=== PATIENT | female | born 1975 | race Caucasian/White ===

== ENCOUNTER → 2017-08-15 | Outpatient (CLI) | payer OTHER ==
--- NOTE | 2017-08-16 13:13 | MM ---
Reason for exam: screening (asymptomatic). Last mammogram was performed 1 year and 5 months ago. History: Patient is postmenopausal. Family history of breast cancer in paternal aunt at age 42. Physical Findings: A clinical breast exam by your physician is recommended on an annual basis and results should be correlated with mammographic findings. MG 3D Screening Mammo W/Cad Bilateral CC and MLO view(s) were taken. Prior study comparison: March 17, 2016, bilateral MG screening mammo w CAD. August 15, 2013, CAD bilateral diagnostic mammogram. The breast tissue is heterogeneously dense. This may lower the sensitivity of mammography. No suspicious abnormality. No significant changes when compared with prior studies. ASSESSMENT: Negative, BI-RAD 1 RECOMMENDATION: Routine screening mammogram of both breasts in 1 year.
== END ==
LOC: RADMAMWWP 16:42
PROVIDERS: ATTEND Obstetrics & Gynecology
DX: Z12.31 Encounter for screening mammogram for malignant neoplasm of breast (principal)
CPT/HCPCS: 77063; G0202

== ENCOUNTER 2019-03-27 06:59 | Emergency (ER) | payer BC, OTHER ==
[2019-03-27 07:08] VITALS: BP 121/60; PULSE 89; RESP 18; TEMP 97.7
--- NOTE | 2019-03-27 07:35 | ED ---
General Adult HPI - General Chief complaint: Dental/Oral Stated complaint: dental pain Time Seen by Provider: 03/27/19 07:12 Source: patient Mode of arrival: ambulatory Limitations: no limitations - History of Present Illness Initial comments: Dictation was produced using [employer] dictation software. please excuse any grammatical, word or spelling errors. Chief Complaint: 44-year-old female past medical history of Paz palsy and migraines presents with sublingual pain. History of Present Illness: Patient is a 44-year-old female with 5-6 days of worsening sublingual pain. Patient reports that these symptoms began spontaneously. She feels as though her mouth is dry. She did notice pain when palpating inside of her mouth under the tongue. Patient tried eating sour candy with improvement of symptoms however after 15 minutes pain begins increasing. Denies any constitutional symptoms. Patient does feel some slight swelling under the jaw The ROS documented in this emergency department record has been reviewed and confirmed by me. Those systems with pertinent positive or negative responses have been documented in the HPI. All other systems are other negative and/or noncontributory. PHYSICAL EXAM: General Impression: Alert and oriented x3, not in acute distress HEENT: Normocephalic atraumatic, extra-ocular movements intact, pupils equal and reactive to light bilaterally, mucous membranes moist, slight induration and erythema to the right sublingual space, no identifiable stone, mild positive lymphadenopathy anterior cervical chain Cardiovascular: Heart regular rate and rhythm, S1&S2 audible, no murmurs, rubs or gallops Chest: Lungs clear to auscultation bilaterally, no rhonchi, no wheeze, no rales Abdomen: Bowel sounds present, abdomen soft, non-tender, non-distended, no organomegaly Musculoskeletal: Pulses present and equal in all extremities, no peripheral edema Motor: no focal deficits noted Neurological: CN II-XII grossly intact, no focal motor or sensory deficits noted Skin: Intact with no visualized rashes Psych: Normal affect and mood ED course: 44-year-old female with clinical presentation consistent with sialoadenitis versus sialolithiasis. The patient has had symptoms for 5-6 days and persistent despite sour candies patient be given a prescription for antibiot ics. As upon arrival are within acceptable limits. Patient doesn't have any medication ALLERGIES. Patient given prescription for Augmentin. Given referral to disciplinary hearing officer for outpatient management of symptoms. - Related Data Home Medications Medication Instructions Recorded Confirmed Bacillus Coagulans [Digestive 1 tab PO DAILY 03/27/19 03/27/19 Advantage] Collagen 1 tab PO DAILY 03/27/19 03/27/19 Dextroamphetamine/Amphetamine 20 mg PO QAM 03/27/19 03/27/19 [Adderall Xr] Multivitamins, Thera [Multivitamin 1 tab PO DAILY 03/27/19 03/27/19 (formulary)] Naproxen Sodium [Aleve] 220 mg PO BID PRN 03/27/19 03/27/19 Previous Rx's Medication Instructions Recorded Amoxic-Pot Clav 875-125Mg 1 tab PO BID 7 Days #14 tab 03/27/19 [Augmentin 875-125] Allergies Allergy/AdvReac Type Severity Reaction Status Date / Time Latex, Natural Rubber Allergy Unknown Verified 03/27/19 07:27 Review of Systems ROS Statement: Those systems with pertinent positive or pertinent negative responses have been documented in the HPI. ROS Other: All systems not noted in ROS Statement are negative. Past Medical History Additional Past Medical History / Comment(s): migraine, bells palsy, back pain, History of Any Multi-Drug Resistant Organisms: C-DIFF Date of last positivie culture/infection: 2006 Past Surgical History: Section, Hysterectomy Past Psychological History: No Psychological Hx Reported Smoking Status: Current some day smoker Past Alcohol Use History: Occasional Past Drug Use History: None Reported General Exam Limitations: no limitations Course Vital Signs 03/27/19 07:04 Temperature 97.7 F Pulse Rate 89 Respiratory 18 Rate Blood Pressure 121/60 O2 Sat by Pulse 98 Oximetry Disposition Clinical Impression: Oral pain Disposition: HOME SELF-CARE Condition: Good Instructions (If sedation given, give patient instructions): Sialoadenitis (ED) Prescriptions: Amoxic-Pot Clav 875-125Mg [Augmentin 875-125] 1 tab PO BID 7 Days #14 tab Is patient prescribed a controlled substance at d/c from ED?: No Referrals: Kaylie Maria DO [Primary Care Provider] - 1-2 days Time of Disposition: 07:35
== END 2019-03-27 07:51 | disposition home or self-care (01) ==
LOC: EC 06:59
DX: K13.79 Other lesions of oral mucosa (principal); F17.200 Nicotine dependence, unspecified, uncomplicated; Z79.899 Other long term (current) drug therapy; Z91.040 Latex allergy status
CPT/HCPCS: 99282

== ENCOUNTER 2019-07-13 14:29 | Emergency (ER) | payer BC ==
[2019-07-13 14:36] VITALS: TEMP 97.9
--- NOTE | 2019-07-13 15:04 | ED ---
General Adult HPI - General Chief complaint: Neuro Symptoms/Deficit Stated complaint: Facial Numbness Time Seen by Provider: 07/13/19 14:37 Source: patient, RN notes reviewed Mode of arrival: ambulatory Limitations: no limitations - History of Present Illness Initial comments: Patient is a pleasant 44-year-old female presenting to the emergency department with concerns for neurological problems. Patient states last few days she's been having some headaches mostly on the left side. Patient states it feels almost like a burning sensation. Discomfort has been mild to moderate. Patient states symptoms are not sudden onset. Symptoms have been intermittent. Patient feels the left side of her face is somewhat more full and feels funny. 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 Patient did have an episode when she got out of her car as she was walking into the [employer] salon where she did not know why she was heading there. Patient states this lasted approximately 10 seconds. Patient is anxious and tearful when providing her history. Patient denies any extremity weakness or loss of sensation. Patient states she does not feel confused at this time at all. - Related Data Home Medications Medication Instructions Recorded Confirmed Bacillus Coagulans [Digestive 1 tab PO DAILY 03/27/19 07/13/19 Advantage] Collagen 1 tab PO DAILY 03/27/19 07/13/19 Dextroamphetamine/Amphetamine 20 mg PO DAILY 03/27/19 07/13/19 [Adderall Xr] Fluticasone Nasal [place] [Flonase 1 - 2 spray EA NOSTRIL BID PRN 07/13/19 07/13/19 Nasal [place]] Nitro Coffe Supplement Powder 1 dose PO DAILY 07/13/19 07/13/19 Xanthromax 1 cap PO DAILY 07/13/19 07/13/19 Allergies Allergy/AdvReac Type Severity Reaction Status Date / Time Latex, Natural Rubber Allergy Rash/Hives Verified 07/13/19 16:03 ofloxacin [From Floxin] AdvReac Unknown Verified 07/13/19 16:03 Review of Systems ROS Statement: Those systems with pertinent positive or pertinent negative responses have been documented in the HPI. ROS Other: All systems not noted in ROS Statement are negative. Constitutional: Denies: fever Eyes: Denies: eye pain ENT: Denies: ear pain Respiratory: Denies: cough Cardiovascular: Denies: chest pain Endocrine: Denies: fatigue Gastrointestinal: Denies: abdominal pain Genitourinary: Denies: dysuria Musculoskeletal: Denies: back pain Skin: Denies: rash Neurological: Reports: as per HPI Past Medical History Past Medical History: Rheumatoid Arthritis (RA) Additional Past Medical History / Comment(s): migraine, bells palsy, back pain, History of Any Multi-Drug Resistant Organisms: C-DIFF Date of last positivie culture/infection: 2006 Past Surgical History: Section, Hysterectomy Past Psychological History: No Psychological Hx Reported Smoking Status: Current some day smoker Past Alcohol Use History: Occasional Past Drug Use History: None Reported General Exam Limitations: no limitations General appearance: alert, in no apparent distress Head exam: Present: atraumatic Eye exam: Present: normal appearance, PERRL, EOMI. Absent: nystagmus ENT exam: Present: normal oropharynx Neck exam: Present: normal inspection Respiratory exam: Present: normal lung sounds bilaterally Cardiovascular Exam: Present: regular rate, normal rhythm GI/Abdominal exam: Present: soft. Absent: tenderness Extremities exam: Present: normal inspection Neurological exam: Present: alert, oriented X3, CN II-XII intact (Except for minimal weakness on the left side with smile). Absent: motor sensory deficit Expanded Neurological exam: Present: protecting the airway Patient oriented to: Present: person, place, time Speech: Present: fluid speech Cranial nerves: EOM's Intact: Normal, Facial Sensation: Normal Cerebellar function: Finger to Nose: Normal Sensory exam: Upper Extremity Light Touch: Normal, Lower Extremity Light Touch: Normal Motor strength exam: RUE: 5, LUE: 5, RLE: 5, LLE: 5 Eye Response: (4) open spontaneously Motor Response: (6) obeys commands Verbal Response: (5) oriented Psychiatric exam: Present: normal affect, normal mood Skin exam: Present: normal color Course Vital Signs 07/13/19 07/13/19 07/13/19 14:32 15:00 15:30 Temperature 97.9 F Pulse Rate 84 71 Respiratory 18 12 Rate Blood Pressure 136/77 134/86 127/74 O2 Sat by Pulse 100 100 Oximetry 07/13/19 07/13/19 07/13/19 16:00 16:30 17:00 Temperature Pulse Rate 83 75 73 Respiratory 8 L 7 L 16 Rate Blood Pressure 124/74 113/78 108/73 O2 Sat by Pulse 92 L 100 99 Oximetry 07/13/19 17:30 Temperature Pulse Rate 71 Respiratory 14 Rate Blood Pressure 108/74 O2 Sat by Pulse 100 Oximetry EKG Findings - EKG Comments: EKG Findings:: Normal sinus rhythm 70. OR 118. QRS 74. QT 378. QTC 408. Normal axis. Normal QRS. No acute ST change. Medical Decision Making - Medical Decision Making Patient reevaluated and resting comfortably in bed, symptom-free. Patient has no symptoms to finding of stroke. Patient is symptom-free at this time. Patient does question if her symptoms are related to anxiety. Patient states she did have severe headache a week ago and CT angiogram was done which also showed no acute process. Patient and family are comfortable with discharge home. They are encouraged and agreeable to close follow-up in the being the week and aspirin daily. - Lab Data Result diagrams: 07/13/19 14:58 07/13/19 14:58 Lab Results 07/13/19 07/13/19 07/13/19 Range/Units 14:58 14:58 14:58 WBC 4.9 (3.8-10.6) k/uL RBC 4.49 (3.80-5.40) m/uL Hgb 14.2 (11.4-16.0) gm/dL Hct 42.3 (34.0-46.0) % MCV 94.3 (80.0-100.0) fL MCH 31.6 (25.0-35.0) pg MCHC 33.5 (31.0-37.0) g/dL RDW 15.0 (11.5-15.5) % Plt Count 271 (150-450) k/uL Neutrophils % 53 % Lymphocytes % 30 % Monocytes % 8 % Eosinophils % 5 % Basophils % 1 % Neutrophils # 2.6 (1.3-7.7) k/uL Lymphocytes # 1.5 (1.0-4.8) k/uL Monocytes # 0.4 (0-1.0) k/uL Eosinophils # 0.3 (0-0.7) k/uL Basophils # 0.1 (0-0.2) k/uL PT 10.6 (9.0-12.0) sec INR 1.0 (<1.2) APTT 26.7 (22.0-30.0) sec Sodium 141 (137-145) mmol/L Potassium 4.8 (3.5-5.1) mmol/L Chloride 104 (98-107) mmol/L Carbon Dioxide 29 (22-30) mmol/L Anion Gap 8 mmol/L BUN 11 (7-17) mg/dL Creatinine 0.90 (0.52-1.04) mg/dL Est GFR (CKD-EPI)AfAm 90 (>60 ml/min/1.73 sqM) Est GFR (CKD-EPI)NonAf 78 (>60 ml/min/1.73 sqM) Glucose 88 (74-99) mg/dL Calcium 9.6 (8.4-10.2) mg/dL Total Bilirubin 0.3 (0.2-1.3) mg/dL AST 25 (14-36) U/L ALT 17 (9-52) U/L Alkaline Phosphatase 49 (38-126) U/L Total Protein 7.3 (6.3-8.2) g/dL Albumin 4.3 (3.5-5.0) g/dL - Radiology Data Radiology results: report reviewed (Computed tomography scan of the brain reveals no acute process. CT angios shows no acute process.), image reviewed (Chest x-ray shows no acute process) Disposition Clinical Impression: Confusion Disposition: HOME SELF-CARE Condition: Stable Instructions (If sedation given, give patient instructions): Altered Mental Status (ED) Additional Instructions: Please follow-up with your primary care physician Monday. Aspirin daily until further directed by your primary care physician. He will need further evaluation. Return for confusion, weakness, loss of sensation, worsening or changing symptoms or any other concerns. Is patient prescribed a controlled substance at d/c from ED?: No Referrals: Kaylie Maria DO [Primary Care Provider] - 1-2 days Time of Disposition: 19:13
[2019-07-13 15:11] LABS: Basophils # (A) 0.1 k/uL (0-0.2); Basophils % (A) 1 %; Eosinophils # (A) 0.3 k/uL (0-0.7); Eosinophils % (A) 5 %; HCT 42.3 % (34.0-46.0); HGB 14.2 gm/dL (11.4-16.0); Lymphocytes # (A) 1.5 k/uL (1.0-4.8); Lymphocytes % (A) 30 %; MCH 31.6 pg (25.0-35.0); MCHC 33.5 g/dL (31.0-37.0); MCV 94.3 fL (80.0-100.0); Monocytes # (A) 0.4 k/uL (0-1.0); Monocytes % (A) 8 %; Neutrophils # (A) 2.6 k/uL (1.3-7.7); Neutrophils % (A) 53 %; Platelet Count 271 k/uL (150-450); RBC 4.49 m/uL (3.80-5.40); WBC 4.9 k/uL (3.8-10.6)
[2019-07-13 15:19] LABS: Partial Thromboplastin Time 26.7 sec (22.0-30.0); Prothrombin Time 10.6 sec (9.0-12.0)
[2019-07-13 15:21] LABS: Albumin 4.3 g/dL (3.5-5.0); Calcium 9.6 mg/dL (8.4-10.2); Potassium 4.8 mmol/L (3.5-5.1); Total Bilirubin 0.3 mg/dL (0.2-1.3); Total Protein 7.3 g/dL (6.3-8.2)
--- NOTE | 2019-07-13 15:56 | CT ---
EXAMINATION TYPE: CT brain wo con DATE OF EXAM: 07/13/2019 COMPARISON: None HISTORY: 44-year-old female Left sided weakness and confusion on and off x 1 week. TECHNIQUE: Examination was done in axial plane without intravenous contrast. Coronal and sagittal r econstructions performed. CT DLP: 1099.4 mGycm Automated exposure control for dose reduction was used. FINDINGS: There is no evidence of acute intracranial hemorrhage, acute ischemic changes, mass, mass-effect, or extra-axial fluid collection. There is no effacement of cerebral sulci or basal subarachnoid cister ns. There is no hydrocephalus. There is no midline shift. Montiel-white matter distinction is preserv ed. Paranasal sinuses and mastoid air cells are well pneumatized. Orbits and globes are intact. IMPRESSION: No acute intracranial abnormality seen. If symptoms persist, follow-up CT or MRI.
--- NOTE | 2019-07-13 16:22 | XR ---
EXAMINATION TYPE: XR chest 2V DATE OF EXAM: 07/13/2019 COMPARISON: None HISTORY: 44-year-old female confusion, altered mental status TECHNIQUE: PA and lateral views FINDINGS: The cardiomediastinal silhouette, aorta, and pulmonary vasculature are within normal limits. Lungs an d pleural spaces are clear. IMPRESSION: No acute cardiopulmonary process.
[2019-07-13 17:46] VITALS: PULSE 71; RESP 14
--- NOTE | 2019-07-13 19:06 | CT ---
EXAMINATION TYPE: CT angio head neck DATE OF EXAM: 07/13/2019 COMPARISON: Correlation CT brain same day HISTORY: 44-year-old female Dizziness TECHNIQUE: Contiguous axial scanning of the head and neck performed with IV Contrast, patient injecte d with 50 mL of Isovue 370. Coronal/sagittal MIP reconstructions performed. 3-D reconstructions gener ated on a dedicated independent workstation. CT DLP: 366.1 mGycm Automated exposure control for dose reduction was used. FINDINGS: Neck: Conventional arch vessel branching anatomy. The bilateral vertebral arteries are patent throughout their course and codominant. The right common and internal carotid arteries are widely patent. The left common and internal carotid arteries are widely patent. Head: The vertebral, basilar, and internal carotid arteries are patent without arterial occlusion, signific ant stenosis, or aneurysmal change. IMPRESSION: 1. NECK: WIDELY PATENT CAROTID AND VERTEBRAL ARTERIES OF THE NECK. 2. HEAD: UNREMARKABLE CTA [place].
[2019-07-13] MEDS ORDERED: ASPIRIN 81 MG PO STA (19:12)
[2019-07-13 19:33] VITALS: BP 127/83
== END 2019-07-13 19:34 | disposition home or self-care (01) ==
LOC: EC 14:29
DX: R41.0 Disorientation, unspecified (principal); R51 Headache; R53.1 Weakness; G51.0 Bell's palsy; M06.9 Rheumatoid arthritis, unspecified; F17.200 Nicotine dependence, unspecified, uncomplicated; Z79.899 Other long term (current) drug therapy; Z88.1 Allergy status to other antibiotic agents; Z91.040 Latex allergy status
CPT/HCPCS: 36415; 93005; 80053; 85025; 85610; 85730; 71046; 70496; 70450; 70498; 99284; Q9967

== ENCOUNTER 2022-05-01 18:58 | Inpatient (IN) | payer BC, MEDICAID, OTHER ==
[2022-05-01] MEDS ORDERED: KETOROLAC 15 MG/ML 1 ML VIAL IVP STA (21:13)
[2022-05-01] MEDS ORDERED: methocarbamoL 750 MG TAB PO STA (21:13)
[2022-05-01] MEDS ORDERED: KETOROLAC 15 MG/ML 1 ML VIAL IM STA (21:24)
--- NOTE | 2022-05-01 21:38 | XR ---
EXAMINATION TYPE: XR lumbosacral spine min 4V DATE OF EXAM: 05/01/2022 COMPARISON: NONE HISTORY: Pain TECHNIQUE: 5 views FINDINGS: The lumbar vertebrae have normal alignment. Posterior elements are intact. No compression f racture. Sacroiliac joints are normal. This spaces appear normal IMPRESSION: Normal lumbar spine exam.
[2022-05-01] MEDS ORDERED: predniSONE 20 MG TAB PO STA (22:39)
[2022-05-01] MEDS ORDERED: MORPHINE SULFATE 4 MG/ML SYRINGE IM STA (22:40)
--- NOTE | 2022-05-02 00:38 | ED ---
General Adult HPI - General Chief complaint: Psychiatric Symptoms Stated complaint: back injury Time Seen by Provider: 05/01/22 19:59 Source: patient Mode of arrival: ambulatory Limitations: no limitations - History of Present Illness Initial comments: 47-year-old female past history of back pain, migraines who presents to the emergency department with back pain and suicidal ideations. Does have a history of sciatica. Reports that she was doing some leg lifts earlier last week when she felt a pop in her back. She has had pain to the left SI region with pain that radiates into the left leg. Denies any saddle anesthesia. No bowel or bladder incontinence. No bowel or bladder retention. Denies any fevers. She has been able to ambulate with no reported weakness in her extremities. The pain has caused her to feel stressed to the point where she is suicidal. Recently went off of [place] wort which she stated Her mood stable. Last year she lost her job and got . She had to move back home and live with her elderly parents. States that the stress of everything has really taken a toll in the back pain was the last straw. Reports that she does have a plan to overdose. No other alleviating, precipitating modifying factors - Related Data Home Medications Medication Instructions Recorded Confirmed Fluticasone Nasal [place] [Flonase 1 - 2 spray EA NOSTRIL BID PRN 07/13/19 07/13/19 Nasal [place]] Previous Rx's Medication Instructions Recorded Acetaminophen Tab [Tylenol] 650 mg PO Q4HR PRN tab 05/04/22 DULoxetine HCL [Cymbalta] 20 mg PO DAILY 30 Days cap 05/04/22 Lidocaine 5% Patch [Lidoderm 5% 1 patch TOPICAL DAILY 14 Days 05/04/22 Patch] patch methocarbamoL [Robaxin-750] 750 mg PO BID 14 Days tab 05/04/22 predniSONE [Deltasone] 20 mg PO BID 5 Days tab 05/04/22 Allergies Allergy/AdvReac Type Severity Reaction Status Date / Time Latex, Natural Rubber Allergy Rash/Hives Verified 05/01/22 19:22 ofloxacin [From Floxin] AdvReac Unknown Verified 05/01/22 19:22 Review of Systems ROS Statement: Those systems with pertinent positive or pertinent negative responses have been documented in the HPI. ROS Other: All systems not noted in ROS Statement are negative. Past Medical History Past Medical History: Rheumatoid Arthritis (RA) Additional Past Medical History / Comment(s): migraine, bells palsy, back pain, History of Any Multi-Drug Resistant Organisms: C-DIFF Date of last positivie culture/infection: 2006 Past Surgical History: Section, Hysterectomy Past Psychological History: Depression Smoking Status: Current some day smoker Past Alcohol Use History: Occasional Past Drug Use History: Marijuana General Exam Limitations: no limitations General appearance: alert, in no apparent distress Head exam: Present: atraumatic, normocephalic, normal inspection Eye exam: Present: normal appearance, PERRL, EOMI. Absent: scleral icterus, conjunctival injection, periorbital swelling ENT exam: Present: normal exam, mucous membranes moist Neck exam: Present: normal inspection. Absent: tenderness, meningismus, lymphadenopathy Respiratory exam: Present: normal lung sounds bilaterally. Absent: respiratory distress, wheezes, rales, rhonchi, stridor Cardiovascular Exam: Present: regular rate, normal rhythm, normal heart sounds. Absent: systolic murmur, diastolic murmur, rubs, gallop, clicks GI/Abdominal exam: Present: soft, normal bowel sounds. Absent: distended, tenderness, guarding, rebound, rigid Extremities exam: Present: normal inspection, full ROM, normal capillary refill. Absent: tenderness, pedal edema, joint swelling, calf tenderness Back exam: Present: tenderness (right SI joint) Neurological exam: Present: alert, oriented X3, CN II-XII intact Psychiatric exam: Present: depressed Skin exam: Present: warm, dry, intact, normal color. Absent: rash Course Vital Signs 05/01/22 05/01/22 05/02/22 19:15 23:42 02:20 Temperature 97.6 F Pulse Rate 90 67 77 Respiratory 20 16 16 Rate Blood Pressure 132/80 118/69 128/77 O2 Sat by Pulse 100 98 98 Oximetry Medical Decision Making - Medical Decision Making Upon arrival patient is placed in room 7. There are history and physical exam was performed. She was given Robaxin and Toradol for pain control. Reevaluated and continues to have pain. X-ray was performed which demonstrates no acute fractures. Patient continues to have pain and therefore is given 4 mg of morphine and 60 mg of prednisone. Pain is improved at this time. She is stable for EPS evaluation - Lab Data Result diagrams: 05/03/22 07:00 05/03/22 07:00 Lab Results 05/02/22 05/02/22 Range/Units 01:09 02:21 Urine Color Yellow Urine Appearance Cloudy H (Clear) Urine pH 7.5 (5.0-8.0) Ur Specific [place] 1.013 (1.001-1.035) Urine Protein Negative (Negative) Urine Glucose (UA) Negative (Negative) Urine Ketones Negative (Negative) Urine Blood Negative (Negative) Urine Nitrite Negative (Negative) Urine Bilirubin Negative (Negative) Urine Urobilinogen <2.0 (<2.0) mg/dL Ur Leukocyte Esterase Negative (Negative) Urine RBC 1 (0-5) /hpf Urine WBC 1 (0-5) /hpf Ur Squamous Epith Cells 2 (0-4) /hpf Amorphous Sediment Few H (None) /hpf Urine Opiates Screen Not Detected (NotDetected) Ur Oxycodone Screen Not Detected (NotDetected) Urine Methadone Screen Not Detected (NotDetected) Ur Propoxyphene Screen Not Detected (NotDetected) Ur Barbiturates Screen Not Detected (NotDetected) U Tricyclic Antidepress Not Detected (NotDetected) Ur Phencyclidine Scrn Not Detected (NotDetected) Ur Amphetamines Screen Not Detected (NotDetected) U Methamphetamines Scrn Not Detected (NotDetected) U Benzodiazepines Scrn Not Detected (NotDetected) Urine Cocaine Screen Not Detected (NotDetected) U Marijuana (THC) Screen Detected H (NotDetected) Coronavirus (PCR) Not Detected (Not Detectd) Disposition Clinical Impression: Lumbar back pain with radiculopathy affecting left lower extremity, Depression Disposition: TRANSFER TO PSYCH HOSP/UNIT Condition: Stable Is patient prescribed a controlled substance at d/c from ED?: No
[2022-05-02 01:51] LABS: Amorphous Sediment,Urine Few /hpf; Appearance,Urine Cloudy (Clear); Bilirubin,Urine Negative (Negative); Blood,Urine Negative (Negative); Color,Urine Yellow; Glucose,Urine (UA) Negative (Negative); Ketones,Urine Negative (Negative); Leukocyte Esterase,Urine Negative (Negative); Nitrite,Urine Negative (Negative); PH, Urine 7.5 (5.0-8.0); Protein,Urine Negative (Negative); RBC,Urine 1 /hpf (0-5); Specific Gravity,Urine 1.013 (1.001-1.035); Squamous Epithelial Cell,Urine 2 /hpf (0-4); Urobilinogen,Urine <2.0 mg/dL (<2.0); WBC,Urine 1 /hpf (0-5)
[2022-05-02 01:54] LABS: Amphetamine Screen,Urine Not Detected (NotDetected); Barbiturate Screen,Urine Not Detected (NotDetected); Benzodiazepines Screen,Urine Not Detected (NotDetected); Cocaine Screen,Urine Not Detected (NotDetected); Methadone Screen, Urine Not Detected (NotDetected); Opiate Screen,Urine Not Detected (NotDetected); Oxycodone Screen, Urine Not Detected (NotDetected); Phencyclidine Screen,Urine Not Detected (NotDetected); Tricyclic Antidepressant,Urine Not Detected (NotDetected); Urn Cannabinoid Scrn Detected (NotDetected)
[2022-05-02] MEDS ORDERED: LORazepam 1 MG TAB PO PRN ×2 (03:35→03:49)
[2022-05-02] MEDS ORDERED: MAG HYDROX/AL HYDROX/SIMETH 30 ML CUP PO PRN ×2 (03:35→03:49)
[2022-05-02] MEDS ORDERED: MAGNESIUM HYDROXIDE 2,400 MG/10 ML CUP PO PRN ×2 (03:35→03:52)
[2022-05-02] MEDS ORDERED: HALOPERIDOL LACTATE 5 MG/ML 1 ML VIAL IM PRN ×3 (03:35→03:49)
[2022-05-02] MEDS ORDERED: ACETAMINOPHEN TAB 325 MG TAB PO PRN (03:35)
[2022-05-02] MEDS ORDERED: LORazepam 2 MG/ML INJ IM PRN ×2 (03:41→03:49)
[2022-05-02] MEDS ORDERED: HYDROcodone/APAP 5-325MG 1 EACH TAB PO STA (06:58)
[2022-05-02] MEDS: methocarbamoL 750 MG TAB PO SCH ×2 (09:38→22:08)
[2022-05-02] MEDS: predniSONE 20 MG TAB PO SCH ×2 (09:38→22:08)
--- NOTE | 2022-05-02 13:00 | P.HP ---
Psychiatric H&P - . H&P Date: 05/02/22 History & Physical: Allergies Allergy/AdvReac Type Severity Reaction Status Date / Time Latex, Natural Rubber Allergy Rash/Hives Verified 05/01/22 19:22 ofloxacin From Floxin AdvReac Unknown Verified 05/01/22 19:22 Vital Signs Temp 97.5 F L 05/02/22 05:04 Pulse 97 05/02/22 05:04 Resp 20 05/02/22 05:04 BP 132/77 05/02/22 05:04 Pulse Ox 98 05/02/22 02:20 FiO2 Intake & Output 05/01/22 05/02/22 05/02/22 18:59 06:59 18:59 Weight 55.962 kg Laboratory Last Values Estimated Ave Glu mg/dL 113 05/02/22 07:17 Hemoglobin A1c 5.6 % (0.0-6.0) 05/02/22 07:17 Urine Color Yellow 05/02/22 01:09 Urine Appearance Cloudy (Clear) H 05/02/22 01:09 Urine pH 7.5 (5.0-8.0) 05/02/22 01:09 Ur Specific [place] 1.013 (1.001-1.035) 05/02/22 01:09 Urine Protein Negative (Negative) 05/02/22 01:09 Urine Glucose (UA) Negative (Negative) 05/02/22 01:09 Urine Ketones Negative (Negative) 05/02/22 01:09 Urine Blood Negative (Negative) 05/02/22 01:09 Urine Nitrite Negative (Negative) 05/02/22 01:09 Urine Bilirubin Negative (Negative) 05/02/22 01:09 Urine Urobilinogen <2.0 mg/dL (<2.0) 05/02/22 01:09 Ur Leukocyte Esterase Negative (Negative) 05/02/22 01:09 Urine RBC 1 /hpf (0-5) 05/02/22 01:09 Urine WBC 1 /hpf (0-5) 05/02/22 01:09 Ur Squamous Epith Cells 2 /hpf (0-4) 05/02/22 01:09 Amorphous Sediment Few /hpf (None) H 05/02/22 01:09 Urine Opiates Screen Not Detected (NotDetected) 05/02/22 01:09 Ur Oxycodone Screen Not Detected (NotDetected) 05/02/22 01:09 Urine Methadone Screen Not Detected (NotDetected) 05/02/22 01:09 Ur Propoxyphene Screen Not Detected (NotDetected) 05/02/22 01:09 Ur Barbiturates Screen Not Detected (NotDetected) 05/02/22 01:09 U Tricyclic Antidepress Not Detected (NotDetected) 05/02/22 01:09 Ur Phencyclidine Scrn Not Detected (NotDetected) 05/02/22 01:09 Ur Amphetamines Screen Not Detected (NotDetected) 05/02/22 01:09 U Methamphetamines Scrn Not Detected (NotDetected) 05/02/22 01:09 U Benzodiazepines Scrn Not Detected (NotDetected) 05/02/22 01:09 Urine Cocaine Screen Not Detected (NotDetected) 05/02/22 01:09 U Marijuana (THC) Screen Detected (NotDetected) H 05/02/22 01:09 Coronavirus (PCR) Not Detected (Not Detectd) 05/02/22 02:21 05/02/22 12:54 IDENTIFYING DATA: Patient is a 47-year-old female who currently lives with her parents in a house has 2 sons. 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 Patient claims that she was doing leg lifts and throughout her back. She states that she is having severe pain and was having depression and suicidal thoughts before coming in the hospital. She had an x-ray of her lumbar spine completed which did not show any acute changes. Patient appeared to be grabbing her back several times during the interview and unable to sit still. She appeared to be in distress secondary to pain. She claims that she has been off of her Ihsan's wort's for several weeks now which has been helping for her depression. She states that the combination of both the pain and off her medications made her depression and suicidal thoughts worse. She states that she did not have a plan. She claims that she also lost her job job in the past year and also divorce as she found is that her was cheating on her. 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 She claims that she is in a better mood today however still feeling depressed. She claims that she believes in a holistic treatment for her mood. Her UDS was positive for THC and urinalysis was negative. Patient denies any suicidal or homicidal ideations intent or plan. At this time patient denies any auditory or visual hallucinations. Patient denies any flight of ideas racing thoughts and increased in goal directed behavior. Patient admits to using cigarettes occasionally, alcohol occasionally, marijuana daily. PAST PSYCHIATRIC HISTORY: Patient states that she has history of depression and anxiety. Patient is not on any psychiatric meds except for [place]'s wort's. Patient denies any previous psychiatric hospitalizations. Patient denies any psychiatric outpatient follow-up. Patient denies any history of suicide attempts in the past. PMH: As per medicine H&P ALLERGIES: as per EMR CHEMICAL DEPENDENCY HISTORY: as per HPI FAMILY PSYCHIATRIC/SUBSTANCE USE HISTORY: Claims that her grandmother had schizophrenia. SOCIAL HISTORY: Patient was born and raised in [place]. She claims that she completed high school and University and also achieved a master's level in psychology. 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 She is denying any legal history at this time. She currently lives with her parents in a house has 2 sons. MENTAL STATUS EXAM: General Appearance: Patient appears to be fan, stated age is alert, directable, and attempts to cooperate. Patient appears to have poor hygiene and grooming. Restless. Behavior: Patient is seated without any agitated behavior. Restless Speech: Patient's speech is fluent and nonpressured. Mood/Affect: Patient reports their mood is depressed, affect is congruent and constricted. Suicidality/Homicidality: Patient denies having any homicidal ideation intent or plan. Denies any suicidal ideations intent or plan Perceptions: Patient denies any visual hallucinations and denies any auditory hallucinations Though content/process: There is no evidence of any delusional thought content and thought process is linear and goal-directed. Memory and concentration: AOX3, grossly intact for the purposes of this session. Can spell "WORLD" backwards Judgment and insight: poor STRENGTHS/WEAKNESSES: strength is that patient is resilient. Weakness is that patient has chronic back pain and poor social support. INTELLECT: average IMPRESSIONS: Major depressive disorder, without psychotic features Cannabis use disorder mild PLAN: -Patient is admitted under voluntary status to MHU for stabilization of psychiatric symptoms and safety. Patient has not signed medication consent and is placed in patient's chart. -Medications : Will start patient on Cymbalta 20 mg daily for mood/anxiety. Patient wants to keep psychiatric medications to a minimum as she believes in a more "holistic" way of treatment. -Ativan and Haldol PRN for agitation/aggression -Patient was counselled on substance abuse and desired to cut back on use -Patient was informed of the risks, benefits and side effects of the medication and declined to sign for the medications. -Internal Medicine consult to perform medical evaluation and physical. -NRT - not needed as patient does not smoke -SW on board for discharge planning. Encourage patient to participate in groups to work on coping skills. 05/02/22 13:00
[2022-05-02] MEDS: DULoxetine HCL 20 MG CAPSULE.DR PO SCH (14:22)
[2022-05-02] MEDS: ACETAMINOPHEN TAB 325 MG TAB PO PRN (18:47)
--- NOTE | 2022-05-03 00:34 | P.CONS ---
History of Present Illness - History of Present Illness This is a pleasant 47 years old female with past medical history inflammatory arthritis, chronic back pain, inflammatory bowel disease, Paz's palsy, migraine. Was admitted to the hospital for signs and symptoms of major depression and other psych illnesses to the psychiatrist to mental health unit, patient was lying in bed denies any chest pain or dyspnea. No abdominal pain or nausea vomiting, no diarrhea. No urinary complaints. She complains from chronic low back pain for 25 years, she still complaining of from some lower abdominal pain now. She was able to get out of bed on her own and move them go back to bed by herself. However on walking she is limping to one side and she works at the tip of her toes. She states that recently she pulled a muscle about one week ago Motor exam of the lower extremities is symmetrical and 5/5 strength both flexion and extension. Reflexes intact. Hemodynamically stable. Hemoglobin A1c 5.6% Urine analysis is negative Urine drug screen is positive for marijuana. Coronavirus not detected. Lumbar spine x-ray: Normal lumbar spine exam Review of Systems CONSTITUTIONAL: No fever, no malaise, no fatigue. HEENT: No recent visual problems or hearing problems. Denied any sore throat. CARDIOVASCULAR: No orthopnea, PND, no palpitations, no syncope. PULMONARY: No shortness of breath, no cough, no hemoptysis. GASTROINTESTINAL: No diarrhea, no nausea, no vomiting, no abdominal pain. Normoactive bowel sounds. NEUROLOGICAL: No headaches, no weakness, no numbness. HEMATOLOGICAL: Denies any bleeding or petechiae. GENITOURINARY: Denies any burning micturition, frequency, or urgency. MUSCULOSKELETAL/RHEUMATOLOGICAL: Denies any joint pain, swelling, or any muscle pain. ENDOCRINE: Denies any polyuria or polydipsia. Past Medical History Past Medical History: Rheumatoid Arthritis (RA) Additional Past Medical History / Comment(s): migraine, bells palsy, back pain, inflammatory bowel. History of Any Multi-Drug Resistant Organisms: C-DIFF Year Discovered:: 2006 MDRO Source:: stool Past Surgical History: Section, Hysterectomy Past Anesthesia/Blood Transfusion Reactions: No Reported Reaction Past Psychological History: Depression Smoking Status: Current some day smoker Past Alcohol Use History: Occasional Past Drug Use History: Marijuana Medications and Allergies Home Medications Medication Instructions Recorded Confirmed Type Bacillus Coagulans [Digestive 1 tab PO DAILY 03/27/19 07/13/19 History Advantage] Collagen 1 tab PO DAILY 03/27/19 07/13/19 History Dextroamphetamine/Amphetamine 20 mg PO DAILY 03/27/19 07/13/19 History [Adderall Xr] Fluticasone Nasal [place] [Flonase 1 - 2 spray EA NOSTRIL BID PRN 07/13/19 07/13/19 History Nasal [place]] Nitro Coffe Supplement Powder 1 dose PO DAILY 07/13/19 07/13/19 History Xanthromax 1 cap PO DAILY 07/13/19 07/13/19 History Allergies Allergy/AdvReac Type Severity Reaction Status Date / Time Latex, Natural Rubber Allergy Rash/Hives Verified 05/01/22 19:22 ofloxacin [From Floxin] AdvReac Unknown Verified 05/01/22 19:22 Physical Exam Vitals: Vital Signs Temp Pulse Pulse Resp BP BP Pulse Ox 05/02/22 05:04 97.5 F L 97 20 132/77 05/02/22 02:20 77 16 128/77 98 05/01/22 23:42 67 16 118/69 98 05/01/22 19:15 97.6 F 90 20 132/80 100 Intake and Output 05/01/22 05/02/22 05/02/22 22:59 06:59 14:59 Other: Weight 61.235 kg 55.962 kg GENERAL: The patient is alert and oriented x3, not in any acute distress. Well developed, well nourished. HEENT: Pupils are round and equally reacting to light. EOMI. No scleral icterus. No conjunctival pallor. Normocephalic, atraumatic. No pharyngeal erythema. No thyromegaly. CARDIOVASCULAR: S1 and S2 present. No murmurs, rubs, or gallops. PULMONARY: Chest is clear to auscultation, no wheezing or crackles. ABDOMEN: Soft, nontender, nondistended, normoactive bowel sounds. No palpable organomegaly. MUSCULOSKELETAL: No joint swelling or deformity. EXTREMITIES: No cyanosis, clubbing, or pedal edema. -Gait: Limping to one side while walking due to low back pain . NEUROLOGICAL: Gross neurological examination did not reveal any focal deficits. SKIN: No rashes. No petechiae Results Labs: Abnormal Lab Results - Last 24 Hours (Table) 05/02/22 Range/Units 01:09 Urine Appearance Cloudy H (Clear) Amorphous Sediment Few H (None) /hpf U Marijuana (THC) Screen Detected H (NotDetected) Assessment and Plan Assessment: -Depression and other psych illnesses, management as per sec primary team -Chronic low back pain with acute worsening for a week associated with limping, continue with lidocaine patch and Tylenol. Consult orthopedic for possible neurological deficit -Marijuana abuse, patient is counseled Recommend patient follow up with PCP in one week Thank you for consulting us
[2022-05-03 07:10] VITALS: RESP 16
[2022-05-03 07:47] LABS: Basophils % (A) 0 %; Eosinophils % (A) 0 %; HCT 43.9 % (34.0-46.0); HGB 14.4 gm/dL (11.4-16.0); Lymphocytes # (A) 1.4 k/uL (1.0-4.8); Lymphocytes % (A) 14 %; MCH 30.7 pg (25.0-35.0); MCHC 32.8 g/dL (31.0-37.0); MCV 93.6 fL (80.0-100.0); Mean Platelet Volume 7.7; Monocytes # (A) 0.4 k/uL (0-1.0); Monocytes % (A) 4 %; Neutrophils # (A) 8.1 k/uL (1.3-7.7); Neutrophils % (A) 81 %; Platelet Count 300 k/uL (150-450); RBC 4.69 m/uL (3.80-5.40); RDW 12.9 % (11.5-15.5); WBC 10.1 k/uL (3.8-10.6)
[2022-05-03 08:06] LABS: ALT 14 U/L (4-34); AST 20 U/L (14-36); African American GFR (CKD) 89 (>60 ml/min/1.73 sqM); Albumin 4.6 g/dL (3.5-5.0); Alkaline Phosphatase 61 U/L (38-126); Anion Gap 9 mmol/L; Blood Urea Nitrogen 20 mg/dL (7-17); Calcium 9.5 mg/dL (8.4-10.2); Carbon Dioxide 24 mmol/L (22-30); Chloride 106 mmol/L (98-107); Glucose 106 mg/dL (74-99); Non-African American GFR(CKD) 77 (>60 ml/min/1.73 sqM); Sodium 139 mmol/L (137-145); Total Bilirubin 0.4 mg/dL (0.2-1.3); Total Protein 7.6 g/dL (6.3-8.2)
[2022-05-03] MEDS: predniSONE 20 MG TAB PO SCH ×2 (09:46→21:24)
[2022-05-03] MEDS: methocarbamoL 750 MG TAB PO SCH ×2 (09:46→21:24)
[2022-05-03] MEDS: DULoxetine HCL 20 MG CAPSULE.DR PO SCH (09:46)
[2022-05-03] MEDS: LIDOCAINE 5% PATCH TOPICAL SCH (09:47)
--- NOTE | 2022-05-03 10:38 | P.PN ---
Progress Note - Text Progress Note Date: 05/03/22 Interval History: Patient was seen lying in her bed today and was directable and agreeable to batool sy with typewriter operator automatic in the office. Patient continues to appear to be in pain and was holding her back once again and unable to sit in the chair. She claims that her mood has been mildly improving since yesterday however still feels anxious being on the unit. She states that she has been eating fairly and that her pain is mildly improved since yesterday. She claims that she would like to go home soon and spoke about a upcoming chiropractic appointment that she wants to go to. She states that she was able to sleep fairly last night however was interrupted by people in the hallway. She claims that she has not been able to go to groups due to not being able to sit. At this time patient denies any suicidal or homical ideations, intent or plan. Patient denies any auditory, visual hallucinations and denies any paranoia or delusions. Patient denies any side effects from the medications and has been compliant with meds. Mental Status Exam: General Appearance: Patient appears to be fan, stated age is alert, directable, and attempts to cooperate. Patient appears to have improving hygiene and grooming. Restless. Behavior: Patient is seated without any agitated behavior. Restless, improving mildly Speech: Patient's speech is fluent and nonpressured. Mood/Affect: Patient reports their mood is improving mildly, affect is congruent and constricted. Suicidality/Homicidality: Patient denies having any homicidal ideation intent or plan. Denies any suicidal ideations intent or plan Perceptions: Patient denies any visual hallucinations and denies any auditory hallucinations Though content/process: There is no evidence of any delusional thought content and thought process is linear and goal-directed. Memory and concentration: AOX3, grossly intact for the purposes of this session Judgment and insight: Improving mildly IMPRESSIONS: Major depressive disorder, without psychotic features Cannabis use disorder mild Plan: -Patient continues to meet criteria for inpatient psychiatric admission for symptom stabilization and safety. Patient has not signed medication consent and was placed in patient's chart. -Medications: Continue with Cymbalta 20 mg daily for mood/anxiety, as patient does not want to have this increased and wants to keep psychiatric medications to a minimum. She does not want anything to help her with sleep at this time. -When necessary Ativan and Haldol for agitation/aggression. -NRT -not needed as patient does not smoke -SW on board for discharge planning. Encouraged the patient to participate in milieu. Likely discharge tomorrow if patient continues to improve.
[2022-05-03 11:25] LABS: Chol/HDL Ratio 2.52 Ratio; LDL Cholesterol,Calculated 108.7 mg/dL (0.0-131.0); VLDL Calculation 15.06 mg/dL (5.00-40.00)
--- NOTE | 2022-05-03 13:05 | P.CNOR ---
History of Present Illness - [facility] Consult date: 05/03/22 Requesting physician: [facility] Consult reason: low back pain History of present illness: Patient is a very pleasant 47-year-old female who is seen and examined in the [facility] unit for further evaluation of her lumbar spine. She admits to chronic low back pain with some left lower extremity radiculopathy which has been ongoing for a number of years. She states she has some pain that radiates down her posterior left lower extremity. She has been able to manage her symptoms long-term with clinical care leader, yoga, and home exercises. She states due to insurance change in the fall of 2020 she was no longer able to continue working through clinical care leader. She does state she is scheduled for evaluation with a new chiropractor tomorrow. She states approximately week and half ago she was doing some exercises with leg lifts for her abdominal muscles when she felt a pain in her lumbar spine with some pain radiating around her left hip towards the anterior. She's had some difficulty standing upright since that time. She is ambulating independently today but is flex forward and slightly side bent. She currently denies any lower extremity weakness or radiculopathy bilaterally. She denies any right lower extremity radiculopathy. Patient states she mainly uses holistic medicine and care for control of her symptoms and medical diagnoses. She states she ran out of Ihsan's wort which she had been using for mood stabilization. Following that, she did have some suicidal ideations. She presented to [facility] for further evaluation in regards to both her lumbar spine and suicidal ideations. She's been seen by psychology. Patient is in a good mood and answer questions for me appropriately today. Patient states she does not feel shooting further evaluation during her admission to the hospital and would like to continue with some conservative treatment outpatient prior to deciding she needs further workup in regards to her lumbar spine. Patient does admit to rheumatoid arthritis and also treats this holistically. Past Medical History Past Medical History: Rheumatoid Arthritis (RA) Additional Past Medical History / Comment(s): migraine, bells palsy, back pain, inflammatory bowel. History of Any Multi-Drug Resistant Organisms: C-DIFF Year Discovered:: 2006 MDRO Source:: stool Past Surgical History: Section, Hysterectomy Past Anesthesia/Blood Transfusion Reactions: No Reported Reaction Past Psychological History: Depression Smoking Status: Current some day smoker Past Alcohol Use History: Occasional Past Drug Use History: Marijuana Medications and Allergies Home Medications Medication Instructions Recorded Confirmed Type Bacillus Coagulans [Digestive 1 tab PO DAILY 03/27/19 07/13/19 History Advantage] Collagen 1 tab PO DAILY 03/27/19 07/13/19 History Dextroamphetamine/Amphetamine 20 mg PO DAILY 03/27/19 07/13/19 History [Adderall Xr] Fluticasone Nasal [place] [Flonase 1 - 2 spray EA NOSTRIL BID PRN 07/13/19 07/13/19 History Nasal [place]] Nitro Coffe Supplement Powder 1 dose PO DAILY 07/13/19 07/13/19 History Xanthromax 1 cap PO DAILY 07/13/19 07/13/19 History Allergies Allergy/AdvReac Type Severity Reaction Status Date / Time Latex, Natural Rubber Allergy Rash/Hives Verified 05/01/22 19:22 ofloxacin [From Floxin] AdvReac Unknown Verified 05/01/22 19:22 Physical Examination Physical exam: Patient is awake, alert, and oriented 3 Vital signs stable Good chest excursion with deep inspiration and expiration Examination of lumbar spine reveals skin is intact with no abrasions, lacerations, or bruises; no erythema, purulence or signs of infection No pain on palpation over the lumbar spine or at the sacroiliac joints b ilaterally Dorsiflexion, plantarflexion, and extensor hallucis longus positive sustained bilaterally Lower extremity strength 5/5 bilaterally Straight leg test negative bilateral lower extremities Negative Lasegue's test bilaterally No signs or symptoms of DVT; no calf pain No pain with internal and external rotation of the hips bilaterally Results Pertinent studies: X-rays of the lumbar spine taken on 05/01/2022: Patient is side bending to the right; overall alignment is adequately maintained; no evidence of significant degenerative disc disease; no evidence of vertebral body compression fracture; no obvious spondylolisthesis - Labs Labs: Abnormal Lab Results - Last 24 Hours (Table) 05/03/22 05/03/22 Range/Units 07:00 07:00 Neutrophils # 8.1 H (1.3-7.7) k/uL BUN 20 H (7-17) mg/dL Glucose 106 H (74-99) mg/dL Cholesterol 205.00 H (0.00-200.00) mg/dL HDL Cholesterol 81.20 H (40.00-60.00) mg/dL H & H 05/03/22 Range/Units 07:00 Hgb 14.4 (11.4-16.0) gm/dL Hct 43.9 (34.0-46.0) % Result Diagrams: 05/03/22 07:00 05/03/22 07:00 Assessment and Plan Assessment: Assessment: Lumbar myofascial strain Chronic low back pain Chronic left lower extremity radiculopathy Depression Suicidal ideation Rheumatoid arthritis (1) Acute exacerbation of chronic low back pain Current Visit: Yes Status: Acute Code(s): M54.50 - LOW BACK PAIN, UNSPECIFIED; G89.29 - OTHER CHRONIC PAIN SNOMED Code(s): 905328581 (2) Lumbar back pain with radiculopathy affecting left lower extremity Current Visit: Yes Status: Acute Code(s): M54.16 - RADICULOPATHY, LUMBAR REGION SNOMED Code(s): 069279466 (3) Acute lumbar myofascial strain Current Visit: Yes Status: Acute Code(s): S39.012A - STRAIN OF MUSCLE, FASCIA AND TENDON OF LOWER BACK, INIT SNOMED Code(s): 820589374 (4) Depression Current Visit: Yes Status: Acute Code(s): F32.A - DEPRESSION, UNSPECIFIED SNOMED Code(s): 35473627 (5) Suicidal ideation Current Visit: Yes Status: Acute Code(s): R45.851 - SUICIDAL IDEATIONS SNOMED Code(s): 9808180 (6) Rheumatoid arthritis Current Visit: Yes Status: Acute Code(s): M06.9 - RHEUMATOID ARTHRITIS, UNSPECIFIED SNOMED Code(s): 26772104 Plan: Plan: 1. Patient does have a history of chronic low back pain with some left lower extremity radiculopathy. She states approximately week and half ago while performing some exercises she began to experience some pain increase in her lumbar spine radiating over her left hip towards the anterior. She denies any other new lower extremity radiculopathy bilaterally. She denies a lower extremity weakness bilaterally. Since that time she has had some difficulty standing upright. She states she would like to continue treatment holistically. She does not currently wish to have any medication specifically for her symptoms. In the past she benefited with clinical care leader. She is currently scheduled for chiropractic evaluation tomorrow, 05/04/2022. She would like to work to treatment with clinical care leader prior to obtaining further imaging or more evaluation regards to her lumbar spine. We discussed from an orthopedic spine standpoint, patient is clear for discharge. We will plan to have her follow up for further evaluation in the outpatient setting. Patient may follow- up with Bakari Reza PA-C or Dr. Artem Rain at [facility] in 3-4 weeks following discharge. We did discuss she may continue with yoga and other exercise activities to her tolerance. We discussed if she were to fail improving with conservative treatment we may plan to obtain MRI imaging of the lumbar spine. 2. Patient will continue these seem examined by psychiatry for her other medical diagnoses including suicidal ideation and depression 3. Patient will continue to be seen and examined by medicine
[2022-05-03] MEDS: ACETAMINOPHEN TAB 325 MG TAB PO PRN (21:39)
[2022-05-04] MEDS: ACETAMINOPHEN TAB 325 MG TAB PO PRN ×2 (03:24→08:10)
[2022-05-04 07:23] VITALS: BP 111/56; PULSE 73; TEMP 98.9
[2022-05-04] MEDS: predniSONE 20 MG TAB PO SCH (08:10)
[2022-05-04] MEDS: methocarbamoL 750 MG TAB PO SCH (08:10)
[2022-05-04] MEDS: DULoxetine HCL 20 MG CAPSULE.DR PO SCH (08:10)
[2022-05-04] MEDS: LIDOCAINE 5% PATCH TOPICAL SCH (08:50)
[2022-05-04 10:03] LABS: Appearance,Urine Cloudy (Clear); Bilirubin,Urine Negative (Negative); Blood,Urine Negative (Negative); Color,Urine Yellow; Glucose,Urine (UA) Negative (Negative); Ketones,Urine Trace (Negative); Leukocyte Esterase,Urine Negative (Negative); Mucus,Urine Occasional /hpf; Nitrite,Urine Negative (Negative); Protein,Urine Trace (Negative); RBC,Urine 5 /hpf (0-5); Specific Gravity,Urine 1.036 (1.001-1.035); Squamous Epithelial Cell,Urine 18 /hpf (0-4); Urobilinogen,Urine <2.0 mg/dL (<2.0); WBC,Urine 8 /hpf (0-5)
--- NOTE | 2022-05-04 11:19 | P.DS ---
Providers Date of admission: 05/02/22 03:29 Expected date of discharge: 05/04/22 Attending physician: Rg Huang MD Consults: 05/02/22 03:35 Consult Physician Routine Consulting Provider: Wagner Bo Consult Reason/Comments: H and P Do you want consulting provider notified?: Yes 05/03/22 00:29 Consult Physician Routine Consulting Provider: Brooklyn Rain Consult Reason/Comments: worsening lower back pain Do you want consulting provider notified?: Yes, Notify in am Primary care physician: Roxi Motta - Discharge Diagnosis(es) (1) Major depressive disorder without psychotic features Current Visit: Yes Status: Acute Priority: High (2) Cannabis use disorder, mild, abuse Current Visit: Yes Status: Acute Priority: Low Hospital Course: Admission HPI: Admission note was completed by signwriter "Patient is a 47-year-old female who currently lives with her parents in a house has 2 sons. 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 Patient presented to the hospital complaining of back pain and suicidal ideations. Patient claims that she was doing leg lifts and throughout her back. She states that she is having severe pain and was having depression and suicidal thoughts before coming in the hospital. She had an x-ray of her lumbar spine completed which did not show any acute changes. Patient appeared to be grabbing her back several times during the interview and unable to sit still. She appeared to be in distress secondary to pain. She claims that she has been off of her [place]'s wort's for several weeks now which has been helping for her depression. She states that the combination of both the pain and off her medications made her depression and suicidal thoughts worse. She states that she did not have a plan. She claims that she also lost her job job in the past year and also divorce as she found is that her was cheating on her. 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 She claims that she is in a better mood today however still feeling depressed. She claims that she believes in a holistic treatment for her mood. Her UDS was positive for THC and urinalysis was negative. Patient denies any suicidal or homicidal ideations intent or plan. At this time patient denies any auditory or visual hallucinations. Patient denies any flight of ideas racing thoughts and increased in goal directed behavior. Patient admits to using cigarettes occasionally, alcohol occasionally, marijuana daily." Hospital course: Upon admission to the unit patient was directable and agreeable to commence treatment and signed adult voluntary form. Patient got along well with other patients on the unit and followed unit protocol. Patient was compliant with the medications and denied any side effects throughout hospital course. Patient was started on Cymbalta 20 mg daily for mood/anxiety.. Patient spoke of her stressors and engaged in therapy however did not attend many groups due to her back pain. Patient was also seen by medical team for history and physical exam. Patient was also seen by orthopedics for consultation and patient requested to continue following up with her chiropractor as an outpatient. Throughout the course of the hospitalization patient gradually improved with regards to mood, anxiety, sleep and returned back to their baseline level of functioning. On the day of discharge patient denied any suicidal or homicidal ideations intent or plan denied any auditory or visual hallucinations. Patient endorsed wanting to live for her health and her future. The patient denied any access to guns or weapons. Patient denied any paranoia and did not endorse any delusions. Patient does not have a significant history of substance abuse and was counseled on abstaining from all substances including alcohol and marijuana. Patient was also counseled on the medications and need for regular compliance and was encouraged to follow-up with their outpatient appointment for mental health and also for primary care. Prior to discharge a family meeting will be arranged by social insurance analyst to answer any questions and ensure safety upon discharge. Mental status exam: General Appearance: Patient appears to be short in stature, stated age is alert, pleasant, and cooperative. Patient is in no acute distress and has improved hygiene and grooming Behavior: Patient is calmly seated without any agitated behavior. Speech: Patient's speech is fluent and nonpressured. Mood/Affect: Patient reports their mood is "good", affect is congruent and euthymic. Suicidality/Homicidality: Patient denies having any suicidal or homicidal ideation intent or plan. Perceptions: Patient denies any auditory or visual hallucinations. Though content/process: There is no evidence of any delusional thought content and thought process is linear and goal-directed. more future oriented Memory and concentration: AOX3, grossly intact for the purposes of this session. Can spell "WORLD" backwards correctly. Judgment and insight: improved with guarded prognosis Impression: Major depressive disorder, without psychotic features Cannabis use disorder mild abuse Plan: -Continue with discharge today as patient has improved and stabilized psychiatrically and is not currently an imminent threat to herself and/or others. -Continue medications: Cymbalta 20 mg daily for mood/anxiety. -Patient was counseled on the need for medication compliance and appropriate follow-up at mental health and also primary care for medical issues. Patient verbalized understanding and agreed. -Social work to arrange for and conduct family meeting to ensure safety upon discharge and answer any questions/concerns. Social work also to arrange for patients follow up appointments for psychiatric care along with follow up with primary care provider. -Patient counseled on abstaining from recreational drugs and marijuana and alcohol. Was informed/educated on the adverse effects on their physical and mental health. Patient verbally agreed and understood. -Patient was instructed to return to the hospital or seek immediate medical care if their psychiatric or medical symptoms do worsen or reoccur. Allergies Allergy/AdvReac Type Severity Reaction Status Date / Time Latex, Natural Rubber Allergy Rash/Hives Verified 05/01/22 19:22 ofloxacin [From Floxin] AdvReac Unknown Verified 05/01/22 19:22 Laboratory Results WBC 10.1 k/uL (3.8-10.6) 05/03/22 07:00 RBC 4.69 m/uL (3.80-5.40) 05/03/22 07:00 Hgb 14.4 gm/dL (11.4-16.0) 05/03/22 07:00 Hct 43.9 % (34.0-46.0) 05/03/22 07:00 MCV 93.6 fL (80.0-100.0) 05/03/22 07:00 MCH 30.7 pg (25.0-35.0) 05/03/22 07:00 MCHC 32.8 g/dL (31.0-37.0) 05/03/22 07:00 RDW 12.9 % (11.5-15.5) 05/03/22 07:00 Plt Count 300 k/uL (150-450) 05/03/22 07:00 MPV 7.7 05/03/22 07:00 Neutrophils % 81 % 05/03/22 07:00 Lymphocytes % 14 % 05/03/22 07:00 Monocytes % 4 % 05/03/22 07:00 Eosinophils % 0 % 05/03/22 07:00 Basophils % 0 % 05/03/22 07:00 Neutrophils # 8.1 k/uL (1.3-7.7) H 05/03/22 07:00 Lymphocytes # 1.4 k/uL (1.0-4.8) 05/03/22 07:00 Monocytes # 0.4 k/uL (0-1.0) 05/03/22 07:00 Eosinophils # 0.0 k/uL (0-0.7) 05/03/22 07:00 Basophils # 0.0 k/uL (0-0.2) 05/03/22 07:00 Sodium 139 mmol/L (137-145) 05/03/22 07:00 Potassium 5.0 mmol/L (3.5-5.1) 05/03/22 07:00 Chloride 106 mmol/L (98-107) 05/03/22 07:00 Carbon Dioxide 24 mmol/L (22-30) 05/03/22 07:00 Anion Gap 9 mmol/L 05/03/22 07:00 BUN 20 mg/dL (7-17) H 05/03/22 07:00 Creatinine 0.89 mg/dL (0.52-1.04) 05/03/22 07:00 Est GFR (CKD-EPI)AfAm 89 (>60 ml/min/1.73 sqM) 05/03/22 07:00 Est GFR (CKD-EPI)NonAf 77 (>60 ml/min/1.73 sqM) 05/03/22 07:00 Glucose 106 mg/dL (74-99) H 05/03/22 07:[address] Glu mg/dL 113 05/02/22 07:17 Hemoglobin A1c 5.6 % (0.0-6.0) 05/02/22 07:17 Calcium 9.5 mg/dL (8.4-10.2) 05/03/22 07:00 Total Bilirubin 0.4 mg/dL (0.2-1.3) 05/03/22 07:00 AST 20 U/L (14-36) 05/03/22 07:00 ALT 14 U/L (4-34) 05/03/22 07:00 Alkaline Phosphatase 61 U/L (38-126) 05/03/22 07:00 Total Protein 7.6 g/dL (6.3-8.2) 05/03/22 07:00 Albumin 4.6 g/dL (3.5-5.0) 05/03/22 07:00 Triglycerides 75.30 mg/dL (0.00-149.00) 05/03/22 07:00 Cholesterol 205.00 mg/dL (0.00-200.00) H 05/03/22 07:00 LDL Cholesterol, Calc 108.7 mg/dL (0.0-131.0) 05/03/22 07:00 VLDL Cholesterol, Calc 15.06 mg/dL (5.00-40.00) 05/03/22 07:00 HDL Cholesterol 81.20 mg/dL (40.00-60.00) H 05/03/22 07:00 Cholesterol/HDL Ratio 2.52 Ratio 05/03/22 07:00 TSH 1.870 mIU/L (0.465-4.680) 05/03/22 07:00 Urine Color Yellow 05/04/22 09:26 Urine Appearance Cloudy (Clear) H 05/04/22 09:26 Urine pH 6.0 (5.0-8.0) 05/04/22 09:26 Ur Specific [place] 1.036 (1.001-1.035) H 05/04/22 09:26 Urine Protein Trace (Negative) H 05/04/22 09:26 Urine Glucose (UA) Negative (Negative) 05/04/22 09:26 Urine Ketones Trace (Negative) H 05/04/22 09:26 Urine Blood Negative (Negative) 05/04/22 09:26 Urine Nitrite Negative (Negative) 05/04/22 09:26 Urine Bilirubin Negative (Negative) 05/04/22 09:26 Urine Urobilinogen <2.0 mg/dL (<2.0) 05/04/22 09:26 Ur Leukocyte Esterase Negative (Negative) 05/04/22 09:26 Urine RBC 5 /hpf (0-5) 05/04/22 09:26 Urine WBC 8 /hpf (0-5) H 05/04/22 09:26 Ur Squamous Epith Cells 18 /hpf (0-4) H 05/04/22 09:26 Amorphous Sediment Few /hpf (None) H 05/02/22 01:09 Urine Mucus Occasional /hpf (None) H 05/04/22 09:26 Urine Opiates Screen Not Detected (NotDetected) 05/02/22 01:09 Ur Oxycodone Screen Not Detected (NotDetected) 05/02/22 01:09 Urine Methadone Screen Not Detected (NotDetected) 05/02/22 01:09 Ur Propoxyphene Screen Not Detected (NotDetected) 05/02/22 01:09 Ur Barbiturates Screen Not Detected (NotDetected) 05/02/22 01:09 U Tricyclic Antidepress Not Detected (NotDetected) 05/02/22 01:09 Ur Phencyclidine Scrn Not Detected (NotDetected) 05/02/22 01:09 Ur Amphetamines Screen Not Detected (NotDetected) 05/02/22 01:09 U Methamphetamines Scrn Not Detected (NotDetected) 05/02/22 01:09 U Benzodiazepines Scrn Not Detected (NotDetected) 05/02/22 01:09 Urine Cocaine Screen Not Detected (NotDetected) 05/02/22 01:09 U Marijuana (THC) Screen Detected (NotDetected) H 05/02/22 01:09 Coronavirus (PCR) Not Detected (Not Detectd) 05/02/22 02:21 Vital Signs Temp 98.9 F 05/04/22 06:37 Pulse 73 05/04/22 06:37 Resp 16 05/04/22 06:37 BP 111/56 05/04/22 06:37 Pulse Ox 98 05/02/22 02:20 FiO2 Patient Condition at Discharge: Stable Plan - Discharge Summary Discharge Rx Participant: No New Discharge Prescriptions: New DULoxetine HCL [Cymbalta] 20 mg PO DAILY 30 Days cap predniSONE [Deltasone] 20 mg PO BID 5 Days tab Lidocaine 5% Patch [Lidoderm 5% Patch] 1 patch TOPICAL DAILY 14 Days patch methocarbamoL [Robaxin-750] 750 mg PO BID 14 Days tab Acetaminophen Tab [Tylenol] 650 mg PO Q4HR PRN tab PRN Reason: Pain/Discomfort Continue Fluticasone Nasal [place] [Flonase Nasal [place]] 1 - 2 spray EA NOSTRIL BID PRN PRN Reason: Allergy Symptoms Discontinued Bacillus Coagulans [Digestive Advantage] 1 tab PO DAILY Dextroamphetamine/Amphetamine [Adderall Xr] 20 mg PO DAILY Collagen 1 tab PO DAILY Nitro Coffe Supplement Powder 1 dose PO DAILY Xanthromax 1 cap PO DAILY Discharge Medication List Fluticasone Nasal [place] [Flonase Nasal [place]] 1 - 2 spray EA NOSTRIL BID PRN 07/13/19 [History] Acetaminophen Tab [Tylenol] 650 mg PO Q4HR PRN tab 05/04/22 [Rx] DULoxetine HCL [Cymbalta] 20 mg PO DAILY 30 Days cap 05/04/22 [Rx] Lidocaine 5% Patch [Lidoderm 5% Patch] 1 patch TOPICAL DAILY 14 Days patch 05/04/22 [Rx] methocarbamoL [Robaxin-750] 750 mg PO BID 14 Days tab 05/04/22 [Rx] predniSONE [Deltasone] 20 mg PO BID 5 Days tab 05/04/22 [Rx] Follow up Appointment(s)/Referral(s): [facility] [place] [Outside] - 05/06/22 10:00 am (With Solo ) Bakari Reza PAC [PHYSICIAN APPARATUS CLEANER] - 4 Weeks (Patient may follow-up with Bakari Reza PA-C or Dr. Artem Rain at [facility] in 3-4 weeks following discharge. ) Roxi Motta DO [Primary Care Provider] - 1-2 days Activity/Diet/Wound Care/Special Instructions: Avoid the use of street drugs and alcohol. Take all prescriptions as prescribed. When you are in need of refills on your medications, please contact your medical provider and/or outpatient psychiatrist to have this done. Please go to scheduled outpatient appointment for aftercare treatment. If symptoms return or become worse, call the crisis line at and/or go to the nearest emergency room for evaluation. Discharge Disposition: HOME SELF-CARE
== END 2022-05-04 12:18 | disposition home or self-care (01) | DRG 881 ==
LOC: EC 18:58 → 3MHU 05-02 03:29
PROVIDERS: ADMIT Psychiatry & Neurology Psychiatry; ATTEND Psychiatry & Neurology Psychiatry
DX: F32.9 Major depressive disorder, single episode, unspecified (principal); R45.851 Suicidal ideations; F12.90 Cannabis use, unspecified, uncomplicated; F17.210 Nicotine dependence, cigarettes, uncomplicated; F41.9 Anxiety disorder, unspecified; G89.29 Other chronic pain; M06.9 Rheumatoid arthritis, unspecified; M54.16 Radiculopathy, lumbar region; S39.012A Strain of muscle, fascia and tendon of lower back, initial encounter; Z56.0 Unemployment, unspecified; Z79.899 Other long term (current) drug therapy; Z81.8 Family history of other mental and behavioral disorders; Z20.822 Contact with and (suspected) exposure to COVID-19
CPT/HCPCS: 72110; 80053; 80061; 80306; 81001; 82075; 83036; 84443; 85025; 87635; 96372; 99285

== ENCOUNTER 2022-05-13 05:51 | Emergency (ER) | payer OTHER ==
[2022-05-13 05:56] VITALS: RESP 18
[2022-05-13] MEDS ORDERED: KETOROLAC 15 MG/ML 1 ML VIAL IM STA (06:14)
[2022-05-13] MEDS ORDERED: ORPHENADRINE 30 MG/ML 2 ML VIAL IM STA (06:14)
--- NOTE | 2022-05-13 06:28 | XR ---
EXAMINATION TYPE: XR Hip LT and AP Pelvis DATE OF EXAM: 05/13/2022 COMPARISON: NONE HISTORY: Pain TECHNIQUE: 3 views FINDINGS: Pelvic ring is intact. Proximal left femur and hip joint appear intact. Hip joint spaces ar e fairly normal. IMPRESSION: Negative left hip and pelvis exam
--- NOTE | 2022-05-13 06:55 | ED ---
Extremity Problem HPI - General Chief complaint: Extremity Problem,Nontraumatic Stated complaint: lt hip pain Time Seen by Provider: 05/13/22 06:07 Source: patient, EMS Mode of arrival: EMS - History of Present Illness Initial comments: Patient is a 47-year-old female presenting with chief complaint of left hip pain. Patient states pain is been present for approximately a week. She states that it is a burning pain. She has been taking muscle relaxers, Tylenol, and just finished a course of steroids. Patient has a history of RA and sciatica. She denies any recent injury or trauma. She denies any saddle paresthesia or loss of bowel or bladder control. Denies any lower extremity weakness, numbness, tingling. Denies any dysuria, hematuria, urgency, frequency. - Related Data Home Medications Medication Instructions Recorded Confirmed Fluticasone Nasal [place] [Flonase 1 - 2 spray EA NOSTRIL BID PRN 07/13/19 07/13/19 Nasal [place]] Previous Rx's Medication Instructions Recorded Acetaminophen Tab [Tylenol] 650 mg PO Q4HR PRN tab 05/04/22 DULoxetine HCL [Cymbalta] 20 mg PO DAILY 30 Days cap 05/04/22 Lidocaine 5% Patch [Lidoderm 5% 1 patch TOPICAL DAILY 14 Days 05/04/22 Patch] patch methocarbamoL [Robaxin-750] 750 mg PO BID 14 Days tab 05/04/22 predniSONE [Deltasone] 20 mg PO BID 5 Days tab 05/04/22 Cyclobenzaprine [Flexeril] 10 mg PO TID PRN #20 tab 05/13/22 Ketorolac [Toradol] 10 mg PO Q6HR PRN #10 tab 05/13/22 Allergies Allergy/AdvReac Type Severity Reaction Status Date / Time Latex, Natural Rubber Allergy Rash/Hives Verified 05/13/22 05:56 ofloxacin [From Floxin] AdvReac Unknown Verified 05/13/22 05:56 Review of Systems ROS Statement: Those systems with pertinent positive or pertinent negative responses have been documented in the HPI. ROS Other: All systems not noted in ROS Statement are negative. Past Medical History Past Medical History: Rheumatoid Arthritis (RA) Additional Past Medical History / Comment(s): migraine, bells palsy, back pain, History of Any Multi-Drug Resistant Organisms: C-DIFF Date of last positivie culture/infection: 2006 MDRO Source:: stool Past Surgical History: Section, Hysterectomy Past Anesthesia/Blood Transfusion Reactions: No Reported Reaction Past Psychological History: Depression Smoking Status: Current some day smoker Past Alcohol Use History: Occasional Past Drug Use History: Marijuana General Exam Limitations: no limitations General appearance: alert, in no apparent distress Head exam: Present: atraumatic, normocephalic, normal inspection Eye exam: Present: normal appearance, EOMI. Absent: scleral icterus, periorbital swelling Neck exam: Present: normal inspection Respiratory exam: Present: normal lung sounds bilaterally. Absent: respiratory distress, wheezes, rales, rhonchi, stridor Cardiovascular Exam: Present: regular rate, normal rhythm, normal heart sounds. Absent: systolic murmur, diastolic murmur, rubs, gallop, clicks Extremities exam: Present: normal inspection, full ROM (Pain with range of motion), tenderness, normal capillary refill. Absent: pedal edema, joint swe lling Back exam: Present: normal inspection. Absent: paraspinal tenderness, vertebral tenderness Neurological exam: Present: alert, oriented X3, CN II-XII intact Psychiatric exam: Present: normal affect, normal mood Skin exam: Present: warm, dry, intact, normal color. Absent: rash Course Vital Signs 05/13/22 05/13/22 05:52 07:15 Temperature 97.7 F 98.3 F Pulse Rate 60 84 Respiratory 18 18 Rate Blood Pressure 105/54 128/74 O2 Sat by Pulse 99 99 Oximetry Medical Decision Making - Medical Decision Making Patient is a 47-year-old female presenting with chief complaint of left hip pain. Patient has a history of premature arthritis and sciatica. She was here recently for back pain, has been taking muscle relaxers, Tylenol, and finished a course of steroids. Patient is now complaining of burning pain in the left hip. Patient has full range of motion, however there is pain with range of motion. No red flag symptoms. X-ray shows no acute fracture or dislocation. Patient is given Norflex and Toradol, she reports improvement in symptoms. She appears stable for discharge with outpatient follow-up at this time. She is provided with a prescription for Flexeril and Toradol. Instructed that Flexeril may cause drowsiness, do not take before driving or operating heavy machinery. Toradol is not to be taken with either NSAIDs, such as Motrin or Aleve. Follow- up with PCP on Monday. Report back to ER with any new or worsening symptoms. Discussed return parameters answered all questions. Patient conveyed verbal understanding and agreed to the plan. My attending is Dr. Gao. Disposition Clinical Impression: Hip pain Disposition: HOME SELF-CARE Condition: Good Instructions (If sedation given, give patient instructions): Hip Pain (ED) Additional Instructions: Follow-up with PCP on Monday. Report back to ER with any new or worsening symptoms. Take medication as prescribed. Do not take Toradol with other NSAIDs, you received 30 mg of Toradol in the ER today. Flexeril causes drowsiness, do not take before driving or operating heavy machinery. Prescriptions: Cyclobenzaprine [Flexeril] 10 mg PO TID PRN #20 tab PRN Reason: Spasms Ketorolac [Toradol] 10 mg PO Q6HR PRN #10 tab PRN Reason: Pain Is patient prescribed a controlled substance at d/c from ED?: No Referrals: None,Stated [Primary Care Provider] - 1-2 days Time of Disposition: 06:54
[2022-05-13 07:16] VITALS: BP 128/74; PULSE 84; TEMP 98.3
== END 2022-05-13 07:15 | disposition home or self-care (01) ==
LOC: EC 05:51
DX: M25.552 Pain in left hip (principal); F17.200 Nicotine dependence, unspecified, uncomplicated; Z91.040 Latex allergy status; Z88.1 Allergy status to other antibiotic agents
CPT/HCPCS: 73502; 99283; 96372; J2360; J1885

== ENCOUNTER 2022-07-30 23:46 | Emergency (ER) | payer OTHER ==
[2022-07-31 00:48] VITALS: BP 128/76; PULSE 102; RESP 16; TEMP 97.7
[2022-07-31] MEDS ORDERED: ONDANSETRON 4 MG/2 ML VIAL IVP STA (02:44)
[2022-07-31] MEDS ORDERED: SODIUM CHLORIDE 0.9% 1,000 ML IV STA (02:44)
[2022-07-31 03:17] LABS: ALT 17 U/L (4-34); AST 25 U/L (14-36); African American GFR (CKD) >90 (>60 ml/min/1.73 sqM); Albumin 4.4 g/dL (3.5-5.0); Alkaline Phosphatase 56 U/L (38-126); Anion Gap 13 mmol/L; Blood Urea Nitrogen 11 mg/dL (7-17); Calcium 9.5 mg/dL (8.4-10.2); Carbon Dioxide 24 mmol/L (22-30); Chloride 97 mmol/L (98-107); Glucose 106 mg/dL (74-99); Non-African American GFR(CKD) 87 (>60 ml/min/1.73 sqM); Potassium 4.7 mmol/L (3.5-5.1); Sodium 134 mmol/L (137-145); Total Bilirubin 0.3 mg/dL (0.2-1.3); Total Protein 6.8 g/dL (6.3-8.2)
[2022-07-31 03:27] LABS: Basophils % (A) 1 %; Eosinophils % (A) 0 %; HCT 37.5 % (34.0-46.0); HGB 12.6 gm/dL (11.4-16.0); Lymphocytes # (A) 1.1 k/uL (1.0-4.8); Lymphocytes % (A) 16 %; MCH 30.4 pg (25.0-35.0); MCHC 33.5 g/dL (31.0-37.0); MCV 90.7 fL (80.0-100.0); Mean Platelet Volume 8.8; Monocytes # (A) 0.3 k/uL (0-1.0); Monocytes % (A) 5 %; Neutrophils # (A) 5.5 k/uL (1.3-7.7); Neutrophils % (A) 78 %; Platelet Count 191 k/uL (150-450); RBC 4.14 m/uL (3.80-5.40); RDW 12.8 % (11.5-15.5); WBC 7.1 k/uL (3.8-10.6)
--- NOTE | 2022-07-31 04:03 | ED ---
General Adult HPI - General Chief complaint: Overdose Stated complaint: accidental overdose Time Seen by Provider: 07/31/22 02:20 Source: patient, EMS, RN notes reviewed Mode of arrival: EMS Limitations: no limitations - History of Present Illness Initial comments: 47-year-old female presents to the emergency department for evaluation after ingesting a larger amount of sativa (a source of cannabis distilled into an oil). States she ingested approximately twice the normal amount around 1730 and began feeling increasingly anxious throughout the evening. Reports she has had intermittent nausea, but no vomiting. States she uses sativa as a component of her meditation practice. Denies any other illicit drug use, thoughts of causing harm to herself or anyone else, headache, dizziness, chest pain, shortness of breath, abdominal pain, diarrhea, dysuria, or hematuria. - Related Data Home Medications Medication Instructions Recorded Confirmed Fluticasone Nasal [place] [Flonase 1 - 2 spray EA NOSTRIL BID PRN 07/13/19 07/13/19 Nasal [place]] Previous Rx's Medication Instructions Recorded Acetaminophen Tab [Tylenol] 650 mg PO Q4HR PRN tab 05/04/22 DULoxetine HCL [Cymbalta] 20 mg PO DAILY 30 Days cap 05/04/22 Lidocaine 5% Patch [Lidoderm 5% 1 patch TOPICAL DAILY 14 Days 05/04/22 Patch] patch methocarbamoL [Robaxin-750] 750 mg PO BID 14 Days tab 05/04/22 predniSONE [Deltasone] 20 mg PO BID 5 Days tab 05/04/22 Cyclobenzaprine [Flexeril] 10 mg PO TID PRN #20 tab 05/13/22 Ketorolac [Toradol] 10 mg PO Q6HR PRN #10 tab 05/13/22 Ondansetron Odt [Zofran Odt] 4 mg PO Q8HR PRN #10 tab 07/31/22 Allergies Allergy/AdvReac Type Severity Reaction Status Date / Time Latex, Natural Rubber Allergy Rash/Hives Verified 05/13/22 05:56 ofloxacin [From Floxin] AdvReac Unknown Verified 05/13/22 05:56 Review of Systems ROS Statement: Those systems with pertinent positive or pertinent negative responses have been documented in the HPI. ROS Other: All systems not noted in ROS Statement are negative. Past Medical History Past Medical History: Rheumatoid Arthritis (RA) Additional Past Medical History / Comment(s): migraine, bells palsy, back pain History of Any Multi-Drug Resistant Organisms: C-DIFF Date of last positivie culture/infection: 2006 MDRO Source:: stool Past Surgical History: Section, Hysterectomy Past Anesthesia/Blood Transfusion Reactions: No Reported Reaction Past Psychological History: Depression Smoking Status: Current some day smoker Past Alcohol Use History: Occasional Past Drug Use History: Marijuana General Exam Limitations: no limitations (Well-developed, well-nourished female in no acute d istress. Initial temperature 97.7, pulse 102, respirations 16, blood pressure 120/76, pulse ox 99% on room air.) General appearance: alert, in no apparent distress Head exam: Present: atraumatic, normocephalic Eye exam: Present: normal appearance, PERRL, EOMI. Absent: scleral icterus, conjunctival injection ENT exam: Present: normal oropharynx Respiratory exam: Present: normal lung sounds bilaterally. Absent: respiratory distress, wheezes, rales, rhonchi, stridor Cardiovascular Exam: Present: regular rate, normal rhythm, normal heart sounds. Absent: systolic murmur, diastolic murmur, rubs, gallop, clicks GI/Abdominal exam: Present: soft, normal bowel sounds. Absent: distended, tenderness, guarding, rebound, rigid Neurological exam: Present: alert, oriented X3, other (Answers questions appropriately. Follows commands as instructed.) Expanded Patient oriented to: Present: person, place, time Speech: Present: fluid speech Cranial nerves: EOM's Intact: Normal Cerebellar function: Romberg: Normal Motor strength exam: RUE: 5, LUE: 5, RLE: 5, LLE: 5 Eye Response: (4) open spontaneously Motor Response: (6) obeys commands Verbal Response: (5) oriented [place] Total: 15 Psychiatric exam: Present: normal affect, normal mood Skin exam: Present: warm, dry, intact, normal color. Absent: rash Course Vital Signs 07/31/22 00:42 Temperature 97.7 F Pulse Rate 102 H Respiratory 16 Rate Blood Pressure 128/76 O2 Sat by Pulse 99 Oximetry - Reevaluation(s) Reevaluation #1: 07/31/22 03:45 Upon reassessment, patient is resting more comfortably. States nausea is significantly improved. Discussed plan of care to discharge home. Patient verbalizes understanding and agrees with this plan. Medical Decision Making - Medical Decision Making This is a pleasant 47-year-old female with a past medical history of RA and migraines who presents to the emergency department for evaluation after ingesting a larger quantity of sativa than what is routine for her. Upon exam, patient is well-appearing and in no acute distress. She follows commands and instructed and answers questions appropriately. She complains of feeling anxious and nauseous. Laboratory studies were obtained and are unremarkable. She was given IV fluids and Zofran with significant improvement. She will be discharged home to follow up with her PCP for a recheck next week. Return parameters were discussed in detail. Patient verbalizes understanding and agrees with this plan. Attending: Shanna. - Lab Data Result diagrams: 07/31/22 02:52 07/31/22 02:52 Lab Results 07/31/22 07/31/22 07/31/22 Range/Units 02:52 02:52 02:52 WBC 7.1 (3.8-10.6) k/uL RBC 4.14 (3.80-5.40) m/uL Hgb 12.6 (11.4-16.0) gm/dL Hct 37.5 (34.0-46.0) % MCV 90.7 (80.0-100.0) fL MCH 30.4 (25.0-35.0) pg MCHC 33.5 (31.0-37.0) g/dL RDW 12.8 (11.5-15.5) % Plt Count 191 (150-450) k/uL MPV 8.8 Neutrophils % 78 % Lymphocytes % 16 % Monocytes % 5 % Eosinophils % 0 % Basophils % 1 % Neutrophils # 5.5 (1.3-7.7) k/uL Lymphocytes # 1.1 (1.0-4.8) k/uL Monocytes # 0.3 (0-1.0) k/uL Eosinophils # 0.0 (0-0.7) k/uL Basophils # 0.0 (0-0.2) k/uL Sodium 134 L (137-145) mmol/L Potassium 4.7 (3.5-5.1) mmol/L Chloride 97 L (98-107) mmol/L Carbon Dioxide 24 (22-30) mmol/L Anion Gap 13 mmol/L BUN 11 (7-17) mg/dL Creatinine 0.81 (0.52-1.04) mg/dL Est GFR (CKD-EPI)AfAm >90 (>60 ml/min/1.73 sqM) Est GFR (CKD-EPI)NonAf 87 (>60 ml/min/1.73 sqM) Glucose 106 H (74-99) mg/dL Calcium 9.5 (8.4-10.2) mg/dL Total Bilirubin 0.3 (0.2-1.3) mg/dL AST 25 (14-36) U/L ALT 17 (4-34) U/L Alkaline Phosphatase 56 (38-126) U/L Troponin I <0.012 (0.000-0.034) ng/mL Total Protein 6.8 (6.3-8.2) g/dL Albumin 4.4 (3.5-5.0) g/dL - EKG Data EKG shows normal: sinus rhythm Rate: normal EKG Comments: EKG was obtained at 252 and shows sinus rhythm with sinus arrhythmia. Ventricular rate 92, NV interval 150, QR methodist 74, QT/QTC 349/380. Interpretation normal ECG. Disposition Clinical Impression: Nausea, Accidental drug overdose Disposition: HOME SELF-CARE Condition: Stable Instructions (If sedation given, give patient instructions): Acute Nausea and Vomiting (ED) Additional Instructions: Increase your intake of fluids. May take Zofran if needed for nausea. Follow-up with your PCP for a recheck as needed. Return to the emergency department with any new, worsening, or concerning symptoms. Prescriptions: Ondansetron Odt [Zofran Odt] 4 mg PO Q8HR PRN #10 tab PRN Reason: Nausea Is patient prescribed a controlled substance at d/c from ED?: No Referrals: TOI BROOKE MD [Primary Care Provider] - 1-2 days Time of Disposition: 04:04
[2022-07-31] MEDS ORDERED: ONDANSETRON 4 MG ODT STARTER PACK 2 TAB BTL PO STA (04:04)
== END 2022-07-31 04:29 | disposition home or self-care (01) ==
LOC: EC 23:46
DX: T40.711A Poisoning by cannabis, accidental (unintentional), initial encounter (principal); R11.0 Nausea; F17.200 Nicotine dependence, unspecified, uncomplicated; Z91.040 Latex allergy status; Z91.048 Other nonmedicinal substance allergy status; Z88.1 Allergy status to other antibiotic agents
CPT/HCPCS: 36415; 93005; 80053; 84484; 85025; 99284; 96374; 96361; J2405; S0119

== ENCOUNTER 2023-10-16 11:33 | Emergency (ER) | payer OTHER ==
[2023-10-16 12:18] VITALS: RESP 18; TEMP 97.6
--- NOTE | 2023-10-16 13:44 | ED ---
General Adult HPI - General Chief complaint: Extremity Injury, Upper Stated complaint: right pointer finger pain Time Seen by Provider: 10/16/23 12:53 Source: patient Mode of arrival: ambulatory Limitations: no limitations - History of Present Illness Initial comments: A 48-year-old female presenting to the ED with a chief complaint of finger pain. Notes history of laceration at the end of July. Patient reports over the last few days has had numbness of her index finger with certain positions of the finger reports intermittent pain of that finger as well. No recent injury or trauma. Denies fever or chills. However with history of laceration and pain of the finger is worried about infection of the finger. Notes that she performs repetitive actions with her hands for work. No chest pain shortness of breath. No other complaints. - Related Data Home Medications Medication Instructions Recorded Confirmed Fluticasone Nasal [place] [Flonase 1 - 2 spray EA NOSTRIL BID PRN 07/13/19 07/13/19 Nasal [place]] Previous Rx's Medication Instructions Recorded Acetaminophen Tab [Tylenol] 650 mg PO Q4HR PRN tab 05/04/22 DULoxetine HCL [Cymbalta] 20 mg PO DAILY 30 Days cap 05/04/22 Lidocaine 5% Patch [Lidoderm 5% 1 patch TOPICAL DAILY 14 Days 05/04/22 Patch] patch methocarbamoL [Robaxin-750] 750 mg PO BID 14 Days tab 05/04/22 predniSONE [Deltasone] 20 mg PO BID 5 Days tab 05/04/22 Cyclobenzaprine [Flexeril] 10 mg PO TID PRN #20 tab 05/13/22 Ketorolac [Toradol] 10 mg PO Q6HR PRN #10 tab 05/13/22 Ondansetron Odt [Zofran Odt] 4 mg PO Q8HR PRN #10 tab 07/31/22 Allergies Allergy/AdvReac Type Severity Reaction Status Date / Time Latex, Natural Rubber Allergy Rash/Hives Verified 05/13/22 05:56 ofloxacin [From Floxin] AdvReac Unknown Verified 05/13/22 05:56 Review of Systems ROS Statement: Those systems with pertinent positive or pertinent negative responses have been documented in the HPI. ROS Other: All systems not noted in ROS Statement are negative. Past Medical History Past Medical History: Rheumatoid Arthritis (RA) Additional Past Medical History / Comment(s): migraine, bells palsy, back pain History of Any Multi-Drug Resistant Organisms: C-DIFF Date of last positivie culture/infection: 2006 MDRO Source:: stool Past Surgical History: Section, Hysterectomy Past Anesthesia/Blood Transfusion Reactions: No Reported Reaction Past Psychological History: Depression Smoking Status: Current some day smoker Past Alcohol Use History: Occasional Past Drug Use History: Marijuana General Exam Limitations: no limitations General appearance: alert, in no apparent distress Neck exam: Present: normal inspection Respiratory exam: Present: normal lung sounds bilaterally Cardiovascular Exam: Present: regular rate, normal rhythm GI/Abdominal exam: Present: soft Extremities exam: Present: other (Index finger shows some bruising on the dorsal aspect. Strength and sensation intact with full flexion and extension. Finger shows no edema, warmth, tenderness to palpation.) Neurological exam: Present: alert, oriented X3 Skin exam: Present: warm, dry Course Vital Signs 10/16/23 12:13 Temperature 97.6 F Pulse Rate 63 Respiratory 18 Rate Blood Pressure 164/77 O2 Sat by Pulse 99 Oximetry Medical Decision Making - Medical Decision Making Was pt. sent in by a medical professional or institution (, PA, BUFFER OPERATOR, urgent care, hospital, or residential...) When possible be specific @ -No Did you speak to anyone other than the patient for history (EMS, parent, family, police, friend...)? What history was obtained from this source @ -No Did you review nursing and triage notes (agree or disagree)? Why? @ -I reviewed and agree with nursing and triage notes Were old charts reviewed (outside hosp., previous admission, EMS record, old EKG, old radiological studies, urgent care reports/EKG's, residential records)? Report findings @ -No old charts were reviewed Differential Diagnosis (chest pain, altered mental status, abdominal pain women, abdominal pain men, vaginal bleeding, weakness, fever, dyspnea, syncope, headache, dizziness, GI bleed, back pain, seizure, CVA, palpatations, mental health, musculoskeletal)? @ -Differential Musculoskeletal Muscular strain, contusion, ligament sprain, fracture, arthritis, septic arthritis, bursitis, cellulitis, muscle spasm, nerve compression, DVT, arterial occlusion, herpes zoster, electrolyte abnormality, tumor.... This is not meant to be in all inclusive list EKG interpreted by me (3pts min.). @ -As above X-rays interpreted by me (1pt min.). @ -None done CT interpreted by me (1pt min.). @ -None done U/S interpreted by me (1pt. min.). @ -None done What testing was considered but not performed or refused? (CT, X-rays, U/S, labs)? Why? @ -None What meds were considered but not given or refused? Why? @ -None Did you discuss the management of the patient with other professionals (professionals i.e. , PA, BUFFER OPERATOR, lab, RT, psych nurse, social welfare administrator, tableau architect, teacher, financial compliance officer, caser in)? Give summary @ -No Was smoking cessation discussed for >3mins.? @ -No Was critical care preformed (if so, how long)? @ -No Were there social determinants of health that impacted care today? How? (Homelessness, low income, unemployed, alcoholism, drug addiction, transportation, low edu. Level, literacy, decrease access to med. care, senior living, rehab)? @ -No Was there de-escalation of care discussed even if they declined (Discuss DNR or withdrawal of care, Hospice)? DNR status @ -No What co-morbidities impacted this encounter? (DM, HTN, Smoking, COPD, CAD, Cancer, CVA, ARF, Chemo, Hep., AIDS, mental health diagnosis, sleep apnea, morbid obesity)? @ -None Was patient admitted / discharged? Hospital course, mention meds given and route, prescriptions, significant lab abnormalities, going to OR and other pertinent info. @ -Discharge 48-year-old female presenting to the ED with complaints of finger pain and intermittent paresthesias at the tip of the right finger. Exam shows no evidence of infection. Full strength and sensation with full flexion and extension of the finger with no difficulties. Good capillary refill. Symptoms likely secondary to carpal tunnel bruising likely secondary to minor trauma. Discharged home in good condition and advised follow-up with PCP. Discussed return precautions with patient verbalizes agreement. Undiagnosed new problem with uncertain prognosis? @ -No Drug Therapy requiring intensive monitoring for toxicity (Heparin, Nitro, Insulin, Cardizem)? @ -No Were any procedures done? @ -No Diagnosis/symptom? @ -Index finger pain Acute, or Chronic, or Acute on Chronic? @ -Acute Uncomplicated (without systemic symptoms) or Complicated (systemic symptoms)? @ -Uncomplicated Side effects of treatment? @ -No Exacerbation, Progression, or Severe Exacerbation? @ -No Poses a threat to life or bodily function? How? (Chest pain, USA, CT, pneumonia, PE, COPD, DKA, ARF, appy, cholecystitis, CVA, Diverticulitis, Homicidal, Suicidal, threat to staff... and all critical care pts) @ -No Disposition Clinical Impression: Strain of index finger Disposition: HOME SELF-CARE Condition: Good Additional Instructions: Please return to the Emergency Department if symptoms worsen or any other concerns. Please follow up with your primary care provider. Is patient prescribed a controlled substance at d/c from ED?: No Referrals: TOI BROOKE MD [Primary Care Provider] - 1-2 days Time of Disposition: 13:47
[2023-10-16 14:01] VITALS: BP 118/58; PULSE 73
== END 2023-10-16 14:00 | disposition home or self-care (01) ==
LOC: EC 11:33
DX: S63.610A Unspecified sprain of right index finger, initial encounter (principal); F17.200 Nicotine dependence, unspecified, uncomplicated; F12.90 Cannabis use, unspecified, uncomplicated; Z86.59 Personal history of other mental and behavioral disorders; Z91.040 Latex allergy status; Z88.8 Allergy status to other drugs, medicaments and biological substances; X58.XXXA Exposure to other specified factors, initial encounter
CPT/HCPCS: 99283

== ENCOUNTER 2024-05-11 06:33 | Emergency (ER) | payer OTHER ==
[2024-05-11 06:40] VITALS: RESP 16
--- NOTE | 2024-05-11 07:04 | ED ---
General Adult HPI - General Chief complaint: Syncope Stated complaint: Syncope Time Seen by Provider: 05/11/24 06:36 Source: patient, RN notes reviewed Mode of arrival: EMS Limitations: no limitations - History of Present Illness Initial comments: 49-year-old female presents emergency department via EMS chief complaint of syncopal episode. Patient states that she got up to go to the bathroom states that she got back to bed states that she did not feel well. Patient states she just felt off. Patient states she got up to get something to drink and sat down on a stool in which she felt very dizzy lightheaded clammy feeling. States that she woke up thinking she was in her bed but she was on the vanity in which she struck her head no left occipital base region. Patient states she has had some episodes where she has passed out before has never had any real follow-up has been other reasons for this. She denies any chest pain or palpitations denies any nausea she states she may be dehydrated. - Related Data Home Medications Medication Instructions Recorded Confirmed Fluticasone Nasal [place]us [Flonase 1 - 2 spray EA NOSTRIL BID PRN 07/13/19 07/13/19 Nasal Pettus] Previous Rx's Medication Instructions Recorded Acetaminophen Tab [Tylenol] 650 mg PO Q4HR PRN tab 05/04/22 DULoxetine HCL [Cymbalta] 20 mg PO DAILY 30 Days cap 05/04/22 Lidocaine 5% Patch [Lidoderm 5% 1 patch TOPICAL DAILY 14 Days 05/04/22 Patch] patch methocarbamoL [Robaxin-750] 750 mg PO BID 14 Days tab 05/04/22 predniSONE [Deltasone] 20 mg PO BID 5 Days tab 05/04/22 Cyclobenzaprine [Flexeril] 10 mg PO TID PRN #20 tab 05/13/22 Ketorolac [Toradol] 10 mg PO Q6HR PRN #10 tab 05/13/22 Ondansetron Odt [Zofran Odt] 4 mg PO Q8HR PRN #10 tab 07/31/22 Allergies Allergy/AdvReac Type Severity Reaction Status Date / Time Latex, Natural Rubber Allergy Rash/Hives Verified 05/11/24 06:40 ofloxacin [From Floxin] AdvReac Unknown Verified 05/11/24 06:40 Review of Systems ROS Statement: Those systems with pertinent positive or pertinent negative responses have been documented in the HPI. ROS Other: All systems not noted in ROS Statement are negative. Past Medical History Past Medical History: Rheumatoid Arthritis (RA) Additional Past Medical History / Comment(s): migraine, bells palsy, back pain History of Any Multi-Drug Resistant Organisms: C-DIFF Date of last positivie culture/infection: 2006 MDRO Source:: stool Past Surgical History: Section, Hysterectomy Past Anesthesia/Blood Transfusion Reactions: No Reported Reaction Past Psychological History: Depression Smoking Status: Current some day smoker Past Alcohol Use History: Occasional Past Drug Use History: Marijuana General Exam Limitations: no limitations General appearance: alert, in no apparent distress Head exam: Present: atraumatic, normocephalic, normal inspection Eye exam: Present: normal appearance, PERRL, EOMI. Absent: scleral icterus, conjunctival injection, periorbital swelling ENT exam: Present: normal exam, normal oropharynx, mucous membranes moist. Abse nt: TM's normal bilaterally Neck exam: Present: normal inspection, tenderness (Left paraspinal), full ROM. Absent: meningismus, lymphadenopathy Respiratory exam: Present: normal lung sounds bilaterally. Absent: respiratory distress, wheezes, rales, rhonchi, stridor Cardiovascular Exam: Present: regular rate, normal rhythm, normal heart sounds. Absent: systolic murmur, diastolic murmur, rubs, gallop, clicks GI/Abdominal exam: Present: soft, normal bowel sounds. Absent: distended, tenderness, guarding, rebound, rigid Neurological exam: Present: alert, oriented X3, CN II-XII intact, reflexes normal. Absent: motor sensory deficit Course Vital Signs 05/11/24 05/11/24 05/11/24 06:37 07:26 07:28 Temperature 98.8 F Pulse Rate 67 Pulse Rate [ 60 Sitting [employer]] Pulse Rate [ Standing [employer] ] Pulse Rate [ 60 Supine [employer]] Respiratory 16 16 16 Rate Blood Pressure 116/61 Blood Pressure 115/58 [Left Arm Sitting] Blood Pressure [Left Arm Standing] Blood Pressure 108/64 [Left Arm Supine] O2 Sat by Pulse 99 100 100 Oximetry 05/11/24 07:30 Temperature Pulse Rate Pulse Rate [ Sitting [employer]] Pulse Rate [ 60 Standing [employer] ] Pulse Rate [ Supine [employer]] Respiratory 16 Rate Blood Pressure Blood Pressure [Left Arm Sitting] Blood Pressure 115/70 [Left Arm Standing] Blood Pressure [Left Arm Supine] O2 Sat by Pulse 100 Oximetry EKG Findings - EKG Comments: EKG Findings:: EKG performed at 6: 42 sinus bradycardia with a rate of 58 WI 152 QRS 72 QT/QTc 409/405 - EKG Results: EKG: interpreted by ANAI Medical Decision Making - Medical Decision Making Was pt. sent in by a medical professional or institution (, GERM[facility], HEART NURSE, urgent care, hospital, or correction...) When possible be specific @ -No Did you speak to anyone other than the patient for history (EMS, parent, family, police, friend...)? What history was obtained from this source @ -No Did you review nursing and triage notes (agree or disagree)? Why? @ -I reviewed and agree with nursing and triage notes Were old charts reviewed (outside hosp., previous admission, EMS record, old EKG, old radiological studies, urgent care reports/EKG's, correction records)? Report findings @ -No old charts were reviewed Differential Diagnosis (chest pain, altered mental status, abdominal pain women, abdominal pain men, vaginal bleeding, weakness, fever, dyspnea, syncope, headache, dizziness, GI bleed, back pain, seizure, CVA, palpatations, mental health, musculoskeletal)? @ -Differential Syncope: Valvular disease, hypertrophic cardiomyopathy, pulmonary embolism, tamponade, ta chycardia, bradycardia, [place], hypovolemia, hemorrhage, dissection, anemia, intracranial hemorrhage, seizure, hypoglycemia, carbon monoxide poisoning, this is not meant to be an all-inclusive list. EKG interpreted by me (3pts min.). @ -As above X-rays interpreted by me (1pt min.). @ -None done CT interpreted by me (1pt min.). @ -See brain, C-spine no acute intracranial hemorrhage, skull fracture, cervical fracture patient does have mild degenerative changes cervical spine U/S interpreted by me (1pt. min.). @ -None done What testing was considered but not performed or refused? (CT, X-rays, U/S, la bs)? Why? @ -None What meds were considered but not given or refused? Why? @ -None Did you discuss the management of the patient with other professionals (professionals i.e. , GERM[facility]N, HEART NURSE, lab, RT, psych nurse, renal social worker, bath tester, teacher, building drafting officer, trimming caser)? Give summary @ -No Was smoking cessation discussed for >3mins.? @ -No Was critical care preformed (if so, how long)? @ -No Were there social determinants of health that impacted care today? How? (Homelessness, low income, unemployed, alcoholism, drug addiction, transportation, low edu. Level, literacy, decrease access to med. care, fdc, rehab)? @ -No Was there de-escalation of care discussed even if they declined (Discuss DNR or withdrawal of care, Hospice)? DNR status @ -No What co-morbidities impacted this encounter? (DM, HTN, Smoking, COPD, CAD, Cancer, CVA, ARF, Chemo, Hep., AIDS, mental health diagnosis, sleep apnea, morbid obesity)? @ -None Was patient admitted / discharged? Hospital course, mention meds given and route, prescriptions, significant lab abnormalities, going to OR and other pertinent info. @ -Discharge patient presented for syncopal episode patient had a full workup and mild hypoglycemic, patient does feel improved at this time. She is tolerating oral intake. Patient updated on results she will follow-up with cardiology as she has had multiple episodes in the past. This was more likely r elated to vasovagal. Patient will be discharged with return parameters Undiagnosed new problem with uncertain prognosis? @ -No Drug Therapy requiring intensive monitoring for toxicity (Heparin, Nitro, Insulin, Cardizem)? @ -No Were any procedures done? @ -No Diagnosis/symptom? @ -Syncope Acute, or Chronic, or Acute on Chronic? @ -Acute Uncomplicated (without systemic symptoms) or Complicated (systemic symptoms)? @ -complicated Side effects of treatment? @ -No Exacerbation, Progression, or Severe Exacerbation? @ -No Poses a threat to life or bodily function? How? (Chest pain, [place], [place], pneumonia, PE, COPD, DKA, ARF, appy, cholecystitis, CVA, Diverticulitis, Homicidal, Suicidal, threat to staff... and all critical care pts) @ -No - Lab Data Result diagrams: 05/11/24 06:58 05/11/24 06:58 Lab Results 05/11/24 05/11/24 05/11/24 Range/Units 06:58 06:58 06:58 WBC 9.7 (3.8-10.6) k/uL RBC 4.57 (3.80-5.40) m/uL Hgb 14.3 (11.4-16.0) gm/dL Hct 43.8 (34.0-46.0) % MCV 95.8 (80.0-100.0) fL MCH 31.3 (25.0-35.0) pg MCHC 32.7 (31.0-37.0) g/dL RDW 12.5 (11.5-15.5) % Plt Count 234 (150-450) k/uL MPV 7.6 Neutrophils % 77 % Lymphocytes % 15 % Monocytes % 4 % Eosinophils % 2 % Basophils % 1 % Neutrophils # 7.4 (1.3-7.7) k/uL Lymphocytes # 1.5 (1.0-4.8) k/uL Monocytes # 0.4 (0-1.0) k/uL Eosinophils # 0.2 (0-0.7) k/uL Basophils # 0.1 (0-0.2) k/uL Sodium 140 (137-145) mmol/L Potassium 4.0 (3.5-5.1) mmol/L Chloride 109 H (98-107) mmol/L Carbon Dioxide 26 (22-30) mmol/L Anion Gap 5 mmol/L BUN 16 (7-17) mg/dL Creatinine 0.76 (0.52-1.04) mg/dL Est GFR (CKD-EPI)AfAm >90 (>60 ml/min/1.73 sqM) Est GFR (CKD-EPI)NonAf >90 (>60 ml/min/1.73 sqM) Glucose 72 L (74-99) mg/dL Calcium 8.8 (8.4-10.2) mg/dL Magnesium 2.1 (1.6-2.3) mg/dL Total Bilirubin 0.5 (0.2-1.3) mg/dL AST 30 (14-36) U/L ALT 16 (4-34) U/L Alkaline Phosphatase 53 (38-126) U/L Troponin I <0.012 (0.000-0.034) ng/mL Total Protein 6.7 (6.3-8.2) g/dL Albumin 4.1 (3.5-5.0) g/dL Disposition Clinical Impression: Syncope Disposition: HOME SELF-CARE Condition: Stable Instructions (If sedation given, give patient instructions): Syncope (ED) Additional Instructions: Please return to the Emergency Department if symptoms worsen or any other concerns. Is patient prescribed a controlled substance at d/c from ED?: No Referrals: TOI BROOKE MD [Primary Care Provider] - 1-2 days Brice Terrazas MD [STAFF PHYSICIAN] - 1-2 days Time of Disposition: 08:17
[2024-05-11] MEDS: SODIUM CHLORIDE 0.9% 500 ML 500 ML IV STA (07:37)
[2024-05-11] MEDS: SODIUM CHLORIDE 0.9% 1,000 ML IV STA (07:37)
[2024-05-11] MEDS: ACETAMINOPHEN TAB 325 MG TAB PO STA (07:44)
[2024-05-11 07:50] LABS: ALT 16 U/L (4-34); AST 30 U/L (14-36); African American GFR (CKD) >90 (>60 ml/min/1.73 sqM); Albumin 4.1 g/dL (3.5-5.0); Alkaline Phosphatase 53 U/L (38-126); Anion Gap 5 mmol/L; Blood Urea Nitrogen 16 mg/dL (7-17); Calcium 8.8 mg/dL (8.4-10.2); Carbon Dioxide 26 mmol/L (22-30); Chloride 109 mmol/L (98-107); Glucose 72 mg/dL (74-99); Magnesium 2.1 mg/dL (1.6-2.3); Non-African American GFR(CKD) >90 (>60 ml/min/1.73 sqM); Sodium 140 mmol/L (137-145); Total Bilirubin 0.5 mg/dL (0.2-1.3); Total Protein 6.7 g/dL (6.3-8.2)
[2024-05-11 07:55] LABS: Basophils # (A) 0.1 k/uL (0-0.2); Basophils % (A) 1 %; Eosinophils # (A) 0.2 k/uL (0-0.7); Eosinophils % (A) 2 %; HCT 43.8 % (34.0-46.0); HGB 14.3 gm/dL (11.4-16.0); Lymphocytes # (A) 1.5 k/uL (1.0-4.8); Lymphocytes % (A) 15 %; MCH 31.3 pg (25.0-35.0); MCHC 32.7 g/dL (31.0-37.0); MCV 95.8 fL (80.0-100.0); Mean Platelet Volume 7.6; Monocytes # (A) 0.4 k/uL (0-1.0); Monocytes % (A) 4 %; Neutrophils # (A) 7.4 k/uL (1.3-7.7); Neutrophils % (A) 77 %; Platelet Count 234 k/uL (150-450); RBC 4.57 m/uL (3.80-5.40); RDW 12.5 % (11.5-15.5); WBC 9.7 k/uL (3.8-10.6)
--- NOTE | 2024-05-11 08:11 | CT ---
EXAMINATION TYPE: CT brain eren wo con DATE OF EXAM: 05/11/2024 COMPARISON: 07/13/2019 HISTORY: Syncope, trauma CT DLP: 1350.5 mGycm, Automated exposure control for dose reduction was used. CONTRAST: Patient injected with 0 mL of Isovue 300. CT of the brain is performed utilizing 3 mm thick sections through the posterior fossa and 3 mm thick sections through the remaining calvarium. Study is performed within 24 hours of arrival to the hospital. No abnormal hyperdensity is present to suggest an acute intracranial hemorrhage. No mass lesion is evident. No acute infarcts are evident. Ventricles and sulci are appropriate for the patient age. Paranasal sinuses and mastoid air cells within the criph-ld-igpt are clear. IMPRESSIONS: 1. No acute intracranial process. CT cervical spine. COMPARISON: None CT of the cervical spine is performed in the axial plane at 2 mm thick sections. Reconstructed image s in the coronal, and sagittal plane are reviewed on the computer. No acute fractures are evident. Vertebral body alignment is normal. Disc space narrowing is present C5-6. Remaining disks are preserved. Vertebral body heights are preserved. No spinal canal stenosis is evident. No neural foraminal stenosis is evident. IMPRESSION: 1. Degenerative disc change C5-6
[2024-05-11 09:25] VITALS: BP 113/69; PULSE 63; TEMP 98.7
== END 2024-05-11 08:42 | disposition home or self-care (01) ==
LOC: EC 06:33
DX: R55 Syncope and collapse (principal); R00.1 Bradycardia, unspecified; F17.200 Nicotine dependence, unspecified, uncomplicated; Z91.040 Latex allergy status; Z88.1 Allergy status to other antibiotic agents
CPT/HCPCS: 36415; 70450; 72125; 80053; 83735; 84484; 85025; 93005; 96360; 99285